=== PATIENT | female | born 1955 | race Caucasian/White ===

== ENCOUNTER 2020-10-27 15:51 | Outpatient (REF) | payer MEDICARE, SELFPAY ==
--- NOTE | 2020-10-27 | MM_ITS ---
EXAMINATION: MM SCREENING DIGITAL BREAST TOMOSYNTHESIS, LEFT CLINICAL INFORMATION: Screening. Asymptomatic. Right mastectomy for breast cancer 2012. Due for yearly. COMPARISON: Mammography: 11/28/2019, 09/05/2018, 12/25/2016 TECHNIQUE: Digital breast tomosynthesis is performed in both the craniocaudal and mediolateral oblique views along with computer-aided detection (CAD). Synthesized 2D images are generated from the tomosynthesis. Additional left MLO view is provided. FINDINGS: There are scattered areas of fibroglandular density (ACR BI-RADS breast composition Category b). Breast tissue composition borders on predominantly fatty. Background normal and fibroglandular densities are stable. There is no developing density or interval mass or architectural abnormality. No abnormal calcifications. No significant changes. MM/MM tomosynthesis screening LT IMPRESSION: No mammographic evidence of malignancy. ASSESSMENT: BI-RADS 1: Negative RECOMMENDATION: Routine annual mammography screening. This patient's information was entered into a reminder system with a target due date for their next mammogram.
== END 2020-10-27 15:52 | disposition home or self-care (01) ==
LOC: HO.MAMMO 15:51
PROVIDERS: PCP Internal Medicine; Visit Provider Internal Medicine Medical Oncology
DX: Z12.31 Encounter for screening mammogram for malignant neoplasm of breast (principal)
CPT/HCPCS: 77067

== ENCOUNTER 2020-11-02 09:04 | Outpatient (REF) | payer MEDICARE, SELFPAY ==
[2020-11-02 09:50] LABS: MANUAL DIFF FLAG NO
[2020-11-02 09:54] LABS: Basophils Percent Auto 0.4 % (0-2); Eosinophils Absolute Auto 0.2 X10*3/uL (0.0-0.4); Eosinophils Percent Auto 3.2 % (0-4); Hematocrit 44.4 % (37-47); Hemoglobin 14.6 g/dl (12.0-16.0); Imm Gran Abs Auto 0.01 X10*3/uL (0.00-0.03); Imm Gran Pct Auto 0.2 % (0.0-0.4); Lymphocytes Absolute Auto 1.7 X10*3/uL (1.2-4.9); Lymphocytes Percent Auto 33.3 % (20-40); Mean Corpuscular HGB Conc 32.9 g/dl (31.0-35.0); Mean Corpuscular Hemoglobin 30.8 pg (27.0-33.0); Mean Corpuscular Volume 93.7 fL (80-98); Mean Platelet Volume 8.7 fL (9.4-12.3); Monocytes Absolute Auto 0.4 X10*3/uL (0.1-1.2); Neutrophils Absolute Auto 2.8 X10*3/uL (2.0-8.3); Neutrophils Percent Auto 55.9 % (45-73); Platelet Count 140 X10*3/uL (160-400); Red Blood Count 4.74 X10*6/uL (4.20-5.50); Red Cell Distribution Width 12.3 % (11.0-16.0)
[2020-11-02 10:27] LABS: Alanine Aminotransferase 22 U/L (0-31); Albumin Level 4.1 g/dL (3.5-5.0); Alkaline Phosphatase 149 U/L (39-117); Anion Gap 12 (12-20); Aspartate Amino Transferase 17 U/L (5-31); Bilirubin Total 0.5 mg/dL (0.0-1.0); Blood Urea Nitrogen 13 mg/dL (9-16); Calcium 8.8 mg/dL (8.4-10.2); Carbon Dioxide 29 mmol/L (22-29); Chloride 103 mmol/L (96-108); Cholesterol 232 mg/dL; Estimated Glomerular Filt Rate > 60; Glucose Fasting 93 mg/dL (60-99); HDL Cholesterol 52 mg/dL; LDL Cholesterol Calculated 159 mg/dl; Potassium 4.2 mmol/l (3.3-5.1); Sodium 140 mmol/L (135-145); Total Protein 6.9 g/dL (6.5-8.0); Triglycerides 106 mg/dL
[2020-11-02 10:47] LABS: Thyroid Stimulating Hormone 8.88 uIU/mL (0.32-4.0)
[2020-11-03 13:12] LABS: CA 27.29 33 U/mL (<38)
== END 2020-11-02 09:05 | disposition home or self-care (01) ==
LOC: HO.LAB 09:04
PROVIDERS: PCP Internal Medicine; Visit Provider Internal Medicine Medical Oncology
DX: C50.411 Malignant neoplasm of upper-outer quadrant of right female breast (principal); E66.9 Obesity, unspecified
CPT/HCPCS: 36415; 80053; 80061; 84443; 85025; 86300

== ENCOUNTER 2022-01-09 15:57 | Outpatient (REF) | payer MEDICARE, SELFPAY ==
--- NOTE | ~2022-01-09 | MM_ITS ---
EXAMINATION: MM SCREENING DIGITAL BREAST TOMOSYNTHESIS, LEFT CLINICAL INFORMATION: Right mastectomy for breast cancer, 2013. Asymptomatic. Due for yearly. COMPARISON: Mammography: 10/27/2020, 11/28/2019, 09/05/2018 TECHNIQUE: Digital breast tomosynthesis is performed in both the craniocaudal and mediolateral oblique views along with computer-aided detection (CAD). Synthesized 2D images are generated from the tomosynthesis. Additional left MLO view is provided. FINDINGS: There are scattered areas of fibroglandular density (ACR BI-RADS breast composition Category b). There are no significant masses, abnormal calcifications, or other abnormalities. Breast tissue composition borders on predominantly fatty. Parenchymal pattern is similar to prior studies and there is no developing density or architectural abnormality. The axilla and skin contours are unremarkable. MM/MM tomosynthesis screening LT IMPRESSION: No mammographic evidence of malignancy. ASSESSMENT: BI-RADS 1: Negative RECOMMENDATION: Routine annual mammography screening. This patient's information was entered into a reminder system with a target due date for their next mammogram.
== END 2022-01-09 15:58 | disposition home or self-care (01) ==
LOC: HO.MAMMO 15:57
PROVIDERS: Visit Provider Internal Medicine
DX: Z12.31 Encounter for screening mammogram for malignant neoplasm of breast (principal)
CPT/HCPCS: 77063; 77067

== ENCOUNTER 2022-02-09 11:07 | Outpatient (REF) | payer MEDICARE, SELFPAY ==
[2022-02-09 13:45] LABS: MANUAL DIFF FLAG NO
[2022-02-09 13:55] LABS: Basophils Percent Auto 0.2 % (0-2); Eosinophils Absolute Auto 0.1 X10*3/uL (0.0-0.4); Eosinophils Percent Auto 2.9 % (0-4); Hematocrit 48.5 % (37.0-47.0); Hemoglobin 15.5 g/dl (12.0-16.0); Imm Gran Abs Auto 0.02 X10*3/uL (0.00-0.03); Imm Gran Pct Auto 0.4 % (0.0-0.4); Lymphocytes Absolute Auto 1.4 X10*3/uL (1.2-4.9); Lymphocytes Percent Auto 28.4 % (20-40); Mean Corpuscular Hemoglobin 31.1 pg (27.0-33.0); Mean Corpuscular Volume 97.4 fL (80.0-98.0); Mean Platelet Volume 8.9 fL (9.4-12.3); Monocytes Absolute Auto 0.3 X10*3/uL (0.1-1.2); Monocytes Percent Auto 7.1 % (2-11); Neutrophils Absolute Auto 2.9 x10*3/uL (2.0-8.3); Platelet Count 125 X10*3/uL (160-400); Red Blood Count 4.98 X10*6/uL (4.20-5.50); Red Cell Distribution Width 12.9 % (11.0-16.0); White Blood Count 4.8 X10*3/uL (4.8-10.8)
== END 2022-02-09 11:08 | disposition home or self-care (01) ==
LOC: HO.HMGCLDS 11:07
PROVIDERS: PCP Internal Medicine; Visit Provider Internal Medicine Medical Oncology
DX: C50.411 Malignant neoplasm of upper-outer quadrant of right female breast (principal); E66.9 Obesity, unspecified; D69.6 Thrombocytopenia, unspecified; F41.9 Anxiety disorder, unspecified; J45.30 Mild persistent asthma, uncomplicated; E55.9 Vitamin D deficiency, unspecified; E78.00 Pure hypercholesterolemia, unspecified; L30.9 Dermatitis, unspecified
CPT/HCPCS: 36415; 85025

== ENCOUNTER 2022-02-10 09:37 | Outpatient (REF) | payer MEDICARE, SELFPAY ==
[2022-02-10 11:46] LABS: Alanine Aminotransferase 31 U/L (0-31); Albumin Level 4.3 g/dL (3.5-5.0); Alkaline Phosphatase 123 U/L (39-117); Anion Gap 13 (12-20); Aspartate Amino Transferase 24 U/L (5-31); Bilirubin Total 0.5 mg/dL (0.0-1.0); Blood Urea Nitrogen 10 mg/dL (9-16); Calcium 9.5 mg/dL (8.4-10.2); Carbon Dioxide 27 mmol/L (22-29); Chloride 104 mmol/L (96-108); Cholesterol 249 mg/dL; Estimated Glomerular Filt Rate > 60; Glucose Fasting 90 mg/dL (60-99); HDL Cholesterol 64 mg/dL; LDL Cholesterol Calculated 162 mg/dl; Potassium 4.4 mmol/L (3.3-5.1); Sodium 140 mmol/L (135-145); Total Protein 7.5 g/dL (6.5-8.0); Triglycerides 117 mg/dL
[2022-02-10 12:09] LABS: Vitamin D 25-OH Total 16.8 ng/mL (>30)
== END 2022-02-10 09:38 | disposition home or self-care (01) ==
LOC: HO.HMGCLDS 09:37
PROVIDERS: PCP Internal Medicine; Visit Provider Internal Medicine Medical Oncology
DX: Z00.00 Encounter for general adult medical examination without abnormal findings (principal); C50.411 Malignant neoplasm of upper-outer quadrant of right female breast; E66.9 Obesity, unspecified; D69.6 Thrombocytopenia, unspecified; F41.9 Anxiety disorder, unspecified; J45.30 Mild persistent asthma, uncomplicated; E55.9 Vitamin D deficiency, unspecified; E78.00 Pure hypercholesterolemia, unspecified; L30.9 Dermatitis, unspecified
CPT/HCPCS: 36415; 80053; 80061; 82306; 84443

== ENCOUNTER 2022-07-26 11:07 | Outpatient (REF) | payer MEDICARE, SELFPAY ==
[2022-07-26 13:59] LABS: Basophils Percent Auto 0.4 % (0-2); Eosinophils Absolute Auto 0.1 X10*3/uL (0.0-0.4); Eosinophils Percent Auto 2.2 % (0-4); Hematocrit 45.4 % (37.0-47.0); Hemoglobin 14.7 g/dl (12.0-16.0); Imm Gran Abs Auto 0.01 X10*3/uL (0.00-0.03); Imm Gran Pct Auto 0.2 % (0.0-0.4); Lymphocytes Absolute Auto 1.3 X10*3/uL (1.2-4.9); Lymphocytes Percent Auto 23.4 % (20-40); MANUAL DIFF FLAG SCAN; Mean Corpuscular HGB Conc 32.4 g/dl (31.0-35.0); Mean Corpuscular Hemoglobin 30.2 pg (27.0-33.0); Mean Corpuscular Volume 93.2 fL (80.0-98.0); Mean Platelet Volume 9.6 fL (9.4-12.3); Monocytes Absolute Auto 0.4 X10*3/uL (0.1-1.2); Monocytes Percent Auto 7.6 % (2-11); Neutrophils Absolute Auto 3.6 x10*3/uL (2.0-8.3); Neutrophils Percent Auto 66.2 % (45-73); PLT CLUMP 1; Red Blood Count 4.87 X10*6/uL (4.20-5.50); Red Cell Distribution Width 13.1 % (11.0-16.0); SCAN SMEAR FLAG 1
[2022-07-26 14:00] LABS: Platelet Count 150 X10*3/uL (160-400); White Blood Count 5.4 X10*3/uL (4.8-10.8)
[2022-07-26 14:22] LABS: SLIDE REVIEW VERIFIED
[2022-07-26 14:28] LABS: Vitamin D 25-OH Total 17.8 ng/mL (>30)
[2022-07-26 14:30] LABS: Alanine Aminotransferase 22 U/L (0-31); Albumin Level 4.1 g/dL (3.5-5.0); Alkaline Phosphatase 168 U/L (39-117); Anion Gap 17 (12-20); Aspartate Amino Transferase 22 U/L (5-31); Blood Urea Nitrogen 10 mg/dL (9-16); Calcium 9.4 mg/dL (8.4-10.2); Carbon Dioxide 25 mmol/L (22-29); Chloride 104 mmol/L (96-108); Cholesterol 170 mg/dL; Estimated Glomerular Filt Rate > 60; Glucose Fasting 78 mg/dL (60-99); HDL Cholesterol 60 mg/dL; LDL Cholesterol Calculated 91 mg/dl; Potassium 4.7 mmol/L (3.3-5.1); Sodium 141 mmol/L (135-145); Total Protein 7.1 g/dL (6.5-8.0); Triglycerides 97 mg/dL
[2022-07-26 14:38] LABS: Bilirubin Total 0.4 mg/dL (0.0-1.0)
== END 2022-07-26 11:08 | disposition home or self-care (01) ==
LOC: HO.HMGCLDS 11:07
PROVIDERS: PCP Internal Medicine; Visit Provider Internal Medicine
DX: Z00.00 Encounter for general adult medical examination without abnormal findings (principal); E78.00 Pure hypercholesterolemia, unspecified; E55.9 Vitamin D deficiency, unspecified; L30.9 Dermatitis, unspecified; J45.30 Mild persistent asthma, uncomplicated; F41.9 Anxiety disorder, unspecified
CPT/HCPCS: 36415; 80053; 80061; 82306; 85025

== ENCOUNTER 2023-03-14 14:51 | Outpatient (REF) | payer MEDICARE, SELFPAY ==
[2023-03-14 17:07] LABS: MANUAL DIFF FLAG NO
[2023-03-14 17:17] LABS: Basophils Percent Auto 0.2 % (0-2); Eosinophils Absolute Auto 0.1 X10*3/uL (0.0-0.4); Eosinophils Percent Auto 1.7 % (0-4); Hematocrit 47.2 % (37.0-47.0); Hemoglobin 15.3 g/dl (12.0-16.0); Imm Gran Abs Auto 0.02 X10*3/uL (0.00-0.03); Imm Gran Pct Auto 0.3 % (0.0-0.4); Lymphocytes Absolute Auto 1.5 X10*3/uL (1.2-4.9); Lymphocytes Percent Auto 23.5 % (20-40); Mean Corpuscular HGB Conc 32.4 g/dl (31.0-35.0); Mean Corpuscular Hemoglobin 30.5 pg (27.0-33.0); Mean Corpuscular Volume 94.2 fL (80.0-98.0); Mean Platelet Volume 8.8 fL (9.4-12.3); Monocytes Absolute Auto 0.5 X10*3/uL (0.1-1.2); Monocytes Percent Auto 7.7 % (2-11); Neutrophils Absolute Auto 4.2 x10*3/uL (2.0-8.3); Neutrophils Percent Auto 66.6 % (45-73); Platelet Count 179 X10*3/uL (160-400); Red Blood Count 5.01 X10*6/uL (4.20-5.50); Red Cell Distribution Width 13.8 % (11.0-16.0); White Blood Count 6.3 X10*3/uL (4.8-10.8)
[2023-03-14 18:14] LABS: Alanine Aminotransferase 36 U/L (0-31); Albumin Level 4.4 g/dL (3.5-5.0); Alkaline Phosphatase 129 U/L (39-117); Anion Gap 17 (12-20); Aspartate Amino Transferase 33 U/L (5-31); Bilirubin Total 0.5 mg/dL (0.0-1.0); Blood Urea Nitrogen 10 mg/dL (9-16); Calcium 9.8 mg/dL (8.4-10.2); Carbon Dioxide 24 mmol/L (22-29); Chloride 103 mmol/L (96-108); Estimated Glomerular Filt Rate > 60; Glucose Random 72 mg/dL (60-115); Potassium 4.9 mmol/L (3.3-5.1); Sodium 139 mmol/L (135-145); Total Protein 7.5 g/dL (6.5-8.0)
== END 2023-03-14 14:52 | disposition home or self-care (01) ==
LOC: HO.HMGCLDS 14:51
PROVIDERS: PCP Internal Medicine; Visit Provider Internal Medicine
DX: R19.7 Diarrhea, unspecified (principal)
CPT/HCPCS: 36415; 80053; 85025

== ENCOUNTER 2023-05-07 14:31 | Outpatient (AMB) | payer MEDICARE, SELFPAY ==
--- NOTE | 2023-05-07 14:32 | MHC.OFFVIS ---
Intake Vital Signs 05/07/23 14:34 Height 5 ft 2 in Weight 209 lb BMI 38.2 BP 130/76 Intake Visit Reasons: Menopausal Symptoms Price Accuracy Supervisor Required: No Information Interpreted: non-clinical & clinical Semiautomatic Taper Operator: Semiautomatic Taper Operator Present (Desirae) Allergies Sulfa (Sulfonamide Antibiotics) [SULFA (SULFONAMIDE ANTIBIOTICS)] Allergy (Intermediate, Verified 05/07/23 14:37) HIVES, severe hives Keflex Allergy (Unknown, Uncoded 05/07/23 14:37) Rash seasonal Allergy (Unknown, Uncoded 05/07/23 14:37) Watery Eye SEASONAL ALLERGIES Allergy (Unknown, Uncoded 05/07/23 14:37) CONGESTION/ASTHMA Sulfa Allergy (Unknown, Uncoded 05/07/23 14:37) Rash Is last menstrual period known: No Post menopausal: Yes HPI HPI Comments History of Present Illness Details Presenting complaining of a bulge per vagina no associated urinary or GI symptoms, no vaginal bleeding PFSH Medical History Breast cancer Surgical History H/O mastectomy History of bowel resection Family History Sister Breast cancer Maternal Aunt Breast cancer Female Reproductive History Menstrual Age of Menarche: 8 control method: none Total pregnancies: 4 Full term: 2 Number of Living Children: 2 Ab induced: 1 Ab spontaneous: 1 Date of last pap smear: 12/07/09 (negative) Date of Mammogram: 01/09/22 Review of Systems Const All systems reviewed & are unremarkable except as noted in HPI and below Physical Exam Vital Signs: Last Vital Signs BP 130/76 05/07/23 14:34 BMI result Body Mass Index 38.2 General: Yes no CVA tenderness External Female Exam: normal external appearance and normal appearance of the urethra Speculum Exam - Vagina: normal appearance of the vagina, normal palpation, no lesions, no masses and other (Mild cystocele center and bilateral paravaginal defects) Speculum Exam - Cervix: normal appearance of the cervix, normal palpation, no lesions, no masses and nontender Bimanual exam- vagina & uterus: normal bimanual exam, normal palpation, uterine size normal, normal palpation, uterine shape normal, No Cervical tenderness present, non-tender and other (Mild uterine prolapse) Bimanual Exam- Adnexa, other: normal adnexae Back/Spine/Pelvis Back: no CVA tenderness Assessment & Plan Assessment & Plan (1) Cystocele with uterine prolapse: Comment: Mild central and bilateral paravaginal defects Mild uterine prolapse Code(s): N81.4 - Uterovaginal prolapse, unspecified Plan: Discussed with the patient the finding on pelvic exam showing mild cystocele and uterine prolapse, options of treatment were discussed with the patient including : expected management, pessary or surgical management. All pros and cons, risks and benefits of each approach were discussed with the patient, the patient decided to proceed with expected management. Instructions given to patient to call back if symptoms get worse. All questions answered, the patient verbalized Coding Level of Care Code New Pt Level 3 (84098) Diagnoses Cystocele with uterine prolapse N81.4
[2023-05-07 14:34] VITALS: BP 130/76; BMI 38.2
== END 2023-05-07 15:04 | disposition home or self-care (01) ==
LOC: HO.HWS 14:31
PROVIDERS: PCP Internal Medicine; Visit Provider Obstetrics & Gynecology
DX: N81.4 Uterovaginal prolapse, unspecified (principal)
CPT/HCPCS: 99203

== ENCOUNTER → 2023-05-07 14:31 | Outpatient (BNVA) | payer MEDICARE, SELFPAY | PROVIDERS: PCP Internal Medicine; Visit Provider Obstetrics & Gynecology | DX: N81.4 Uterovaginal prolapse, unspecified (principal) | CPT/HCPCS: 99202 ==

== ENCOUNTER 2023-05-18 10:31 | Outpatient (REF) | payer MEDICARE, SELFPAY ==
[2023-05-18 13:24] LABS: MANUAL DIFF FLAG NO
[2023-05-18 13:33] LABS: Basophils Percent Auto 0.4 % (0-2); Eosinophils Absolute Auto 0.1 X10*3/uL (0.0-0.4); Eosinophils Percent Auto 2.8 % (0-4); Hematocrit 46.5 % (37.0-47.0); Hemoglobin 14.8 g/dl (12.0-16.0); Imm Gran Abs Auto 0.02 X10*3/uL (0.00-0.03); Imm Gran Pct Auto 0.4 % (0.0-0.4); Lymphocytes Absolute Auto 1.4 X10*3/uL (1.2-4.9); Lymphocytes Percent Auto 27.8 % (20-40); Mean Corpuscular HGB Conc 31.8 g/dl (31.0-35.0); Mean Corpuscular Hemoglobin 30.7 pg (27.0-33.0); Mean Corpuscular Volume 96.5 fL (80.0-98.0); Monocytes Absolute Auto 0.4 X10*3/uL (0.1-1.2); Monocytes Percent Auto 7.2 % (2-11); Neutrophils Absolute Auto 3.1 x10*3/uL (2.0-8.3); Neutrophils Percent Auto 61.4 % (45-73); Platelet Count 148 X10*3/uL (160-400); Red Blood Count 4.82 X10*6/uL (4.20-5.50); Red Cell Distribution Width 13.2 % (11.0-16.0)
[2023-05-18 13:54] LABS: Alanine Aminotransferase 19 U/L (0-31); Albumin Level 4.2 g/dL (3.5-5.0); Alkaline Phosphatase 103 U/L (39-117); Aspartate Amino Transferase 19 U/L (5-31); Bilirubin Total 0.4 mg/dL (0.0-1.0); Blood Urea Nitrogen 13 mg/dL (9-16); Calcium 9.5 mg/dL (8.4-10.2); Carbon Dioxide 26 mmol/L (22-29); Chloride 106 mmol/L (96-108); Cholesterol 183 mg/dL; Estimated Glomerular Filt Rate > 60; Glucose Fasting 86 mg/dL (60-99); HDL Cholesterol 62 mg/dL; LDL Cholesterol Calculated 98 mg/dl; Lipase 16 U/L (8-78); Potassium 4.4 mmol/L (3.3-5.1); Sodium 142 mmol/L (135-145); Total Protein 7.4 g/dL (6.5-8.0); Triglycerides 118 mg/dL
[2023-05-18 14:08] LABS: Amylase 45 U/L (28-100); Anion Gap 14 (12-20); Thyroid Stimulating Hormone 2.41 uIU/mL (0.32-4.0); Vitamin D 25-OH Total 42.6 ng/mL (>30)
== END 2023-05-18 10:32 | disposition home or self-care (01) ==
LOC: HO.HMGCLDS 10:31
PROVIDERS: PCP Internal Medicine; Visit Provider Internal Medicine
DX: F41.9 Anxiety disorder, unspecified (principal); F32.9 Major depressive disorder, single episode, unspecified; E78.00 Pure hypercholesterolemia, unspecified; E55.9 Vitamin D deficiency, unspecified; J45.30 Mild persistent asthma, uncomplicated; E66.09 Other obesity due to excess calories; L30.9 Dermatitis, unspecified; E03.9 Hypothyroidism, unspecified
CPT/HCPCS: 36415; 80053; 80061; 82150; 82306; 83690; 84443; 85025

== ENCOUNTER 2023-10-18 16:10 | Outpatient (REF) | payer MEDICARE, SELFPAY | END 2023-10-18 16:11 | disposition home or self-care (01) | LOC: HO.MAMMO 16:10 | PROVIDERS: PCP Internal Medicine; Visit Provider Internal Medicine | DX: Z13.89 Encounter for screening for other disorder (principal) ==

== ENCOUNTER → 2023-11-05 15:00 | Outpatient (BNV) | payer MEDICARE, SELFPAY | PROVIDERS: PCP Internal Medicine; Visit Provider Radiology Diagnostic Radiology | DX: R59.0 Localized enlarged lymph nodes (principal) | CPT/HCPCS: 76642; 77061; 77065; G0279 ==

== ENCOUNTER 2023-11-05 15:06 | Outpatient (REF) | payer MEDICARE, SELFPAY ==
--- NOTE | ~2023-11-05 | MM_ITS ---
EXAMINATION: MM DIAGNOSTIC DIGITAL BREAST TOMOSYNTHESIS, LEFT US BREAST LIMITED, LEFT MAMMOGRAPHY: CLINICAL INFORMATION: 68-year-old female, history of right mastectomy, complaining of palpable abnormality left axillary region. COMPARISON: Mammography: 01/09/2022, 10/27/2020, 11/28/2019, and dating back to 2017. TECHNIQUE: Digital left breast tomosynthesis is performed in both the craniocaudal and mediolateral oblique views along with computer-aided detection (CAD). Synthesized 2D images are generated from the tomosynthesis. In addition, full-field left 3-D exaggerated cc view was obtained, as well as a left full-field 3-D 90 degree mediolateral view. FINDINGS: The breasts are almost entirely fatty (ACR BI-RADS breast composition Category a). There are no suspicious masses, suspicious grouped calcifications, or areas of architectural distortion in either breast. The parenchymal pattern is stable from prior exams. Aside from small normal-appearing lymph nodes, no abnormality is evident within the left axillary region on mammography. There are no skin abnormalities. ULTRASOUND: CLINICAL INFORMATION: As above. COMPARISON: None relevant. TECHNIQUE: Targeted sonographic evaluation left axilla was performed using a high frequency linear transducer. Selected archived documentation. FINDINGS: LEFT AXILLA: There are several small normal appearing lymph nodes with normal thickness cortex and normal fatty cydney within the left axilla, of which one likely represents the palpable focus. There are no masses, cystic abnormalities, abnormal lymph nodes, abnormal regions of shadowing, or edema within the soft tissue planes. MM/MM tomosynthesis diagnostic LT IMPRESSION: There are no findings suspicious for malignancy in the left breast or axilla. The palpable abnormality is most likely one of several normal-appearing left axillary lymph nodes. These are benign. No additional abnormalities in the left axilla. Recommend the patient return to routine annual screening mammography. OVERALL ASSESSMENT: Mammography: BI-RADS 2 - Benign Findings Ultrasound: BI-RADS 2 - Benign Findings RECOMMENDATION: 1 year F/U Results were provided to the patient at time of visit by the technologist. This patient's information was entered into a reminder system with a target due date for their next mammogram.
== END 2023-11-05 15:07 | disposition home or self-care (01) ==
LOC: HO.MAMMO 15:06
PROVIDERS: PCP Internal Medicine; Visit Provider Internal Medicine
DX: N63.32 Unspecified lump in axillary tail of the left breast (principal)
CPT/HCPCS: 76642; 77061; 77065

== ENCOUNTER 2024-07-25 07:43 | Outpatient (REF) | payer MEDICARE, SELFPAY ==
[2024-07-25 11:46] LABS: MANUAL DIFF FLAG NO
[2024-07-25 11:50] LABS: Basophils Percent Auto 0.4 % (0-2); Eosinophils Absolute Auto 0.3 X10*3/uL (0.0-0.4); Eosinophils Percent Auto 4.8 % (0-4); Hematocrit 44.7 % (37.0-47.0); Hemoglobin 14.5 g/dl (12.0-16.0); Imm Gran Abs Auto 0.01 X10*3/uL (0.00-0.03); Imm Gran Pct Auto 0.2 % (0.0-0.4); Lymphocytes Absolute Auto 1.5 X10*3/uL (1.2-4.9); Lymphocytes Percent Auto 29.3 % (20-40); Mean Corpuscular HGB Conc 32.4 g/dl (31.0-35.0); Mean Corpuscular Hemoglobin 31.3 pg (27.0-33.0); Mean Corpuscular Volume 96.5 fL (80.0-98.0); Monocytes Absolute Auto 0.4 X10*3/uL (0.1-1.2); Monocytes Percent Auto 7.5 % (2-11); Neutrophils Percent Auto 57.8 % (45-73); Platelet Count 153 X10*3/uL (160-400); Red Blood Count 4.63 X10*6/uL (4.20-5.50); White Blood Count 5.2 X10*3/uL (4.8-10.8)
[2024-07-25 12:12] LABS: Alanine Aminotransferase 21 U/L (0-31); Alkaline Phosphatase 128 U/L (39-117); Anion Gap 12 (12-20); Aspartate Amino Transferase 19 U/L (5-31); Bilirubin Total 0.3 mg/dL (0.0-1.0); Blood Urea Nitrogen 12 mg/dL (9-16); Carbon Dioxide 27 mmol/L (22-29); Chloride 106 mmol/L (96-108); Cholesterol 172 mg/dL (<200); Estimated Glomerular Filt Rate > 60; Glucose Fasting 80 mg/dL (60-99); HDL Cholesterol 59 mg/dL (>40); LDL Cholesterol Calculated 92 mg/dL (<100); Potassium 4.1 mmol/L (3.3-5.1); Sodium 141 mmol/L (135-145); Total Protein 6.9 g/dL (6.5-8.0); Triglycerides 106 mg/dL (<150)
[2024-07-25 12:27] LABS: Vitamin D 25-OH Total 24.7 ng/mL (>30)
[2024-07-28 14:38] LABS: Thyroid Stimulating Hormone 6.31 uIU/mL (0.32-4.0)
== END 2024-07-25 07:44 | disposition home or self-care (01) ==
LOC: HO.HMGCLDS 07:43
PROVIDERS: PCP Internal Medicine; Visit Provider Internal Medicine
DX: E03.9 Hypothyroidism, unspecified (principal); E78.00 Pure hypercholesterolemia, unspecified; J45.30 Mild persistent asthma, uncomplicated; F32.9 Major depressive disorder, single episode, unspecified; F41.9 Anxiety disorder, unspecified; C50.911 Malignant neoplasm of unspecified site of right female breast; L30.9 Dermatitis, unspecified
CPT/HCPCS: 36415; 80053; 80061; 82306; 84443; 85025

== ENCOUNTER 2024-11-07 11:50 | Outpatient (REF) | payer MEDICARE, SELFPAY ==
[2024-11-07 13:02] LABS: Hematocrit 46.3 % (37.0-47.0); Hemoglobin 15.2 g/dl (12.0-16.0); Mean Corpuscular HGB Conc 32.8 g/dl (31.0-35.0); Mean Corpuscular Hemoglobin 31.1 pg (27.0-33.0); Mean Corpuscular Volume 94.7 fL (80.0-98.0); Mean Platelet Volume 9.1 fL (9.4-12.3); Platelet Count 148 X10*3/uL (160-400); Red Blood Count 4.89 X10*6/uL (4.20-5.50); White Blood Count 4.6 X10*3/uL (4.8-10.8)
[2024-11-07 13:23] LABS: Alanine Aminotransferase 32 U/L (0-31); Albumin Level 4.1 g/dL (3.5-5.0); Alkaline Phosphatase 121 U/L (39-117); Anion Gap 14 (12-20); Aspartate Amino Transferase 42 U/L (5-31); Bilirubin Direct 0.1 mg/dL (0.0-0.5); Bilirubin Total 0.6 mg/dL (0.0-1.0); Blood Urea Nitrogen 12 mg/dL (9-16); Calcium 9.3 mg/dL (8.4-10.2); Carbon Dioxide 21 mmol/L (22-29); Chloride 110 mmol/L (96-108); Cholesterol 174 mg/dL (<200); Estimated Glomerular Filt Rate > 60; Glucose Random 80 mg/dL (60-115); HDL Cholesterol 58 mg/dL (>40); LDL Cholesterol Calculated 93 mg/dL (<100); Potassium 5.3 mmol/L (3.3-5.1); Sodium 140 mmol/L (135-145); Total Protein 8.2 g/dL (6.5-8.0); Triglycerides 115 mg/dL (<150)
[2024-11-07 13:46] LABS: Thyroid Stimulating Hormone 1.39 uIU/mL (0.32-4.0)
== END 2024-11-07 11:51 | disposition home or self-care (01) ==
LOC: HO.HMGCLDS 11:50
PROVIDERS: PCP Internal Medicine; Visit Provider Internal Medicine
DX: C50.919 Malignant neoplasm of unspecified site of unspecified female breast (principal)
CPT/HCPCS: 36415; 80048; 80061; 80076; 84443; 85027

== ENCOUNTER → 2024-11-09 15:45 | Outpatient (BNV) | payer MEDICARE, SELFPAY | PROVIDERS: PCP Internal Medicine; Visit Provider Internal Medicine | DX: Z12.31 Encounter for screening mammogram for malignant neoplasm of breast (principal) | CPT/HCPCS: 77063; 77067 ==

== ENCOUNTER 2024-11-09 16:01 | Outpatient (REF) | payer MEDICARE, SELFPAY | END 2024-11-09 16:02 | disposition home or self-care (01) | LOC: HO.MAMMO 16:01 | PROVIDERS: PCP Internal Medicine; Visit Provider Internal Medicine | DX: Z12.31 Encounter for screening mammogram for malignant neoplasm of breast (principal) | CPT/HCPCS: 77063; 77067 ==

== ENCOUNTER 2024-12-11 12:42 | Outpatient (AMB) | payer MEDICARE, SELFPAY ==
--- NOTE | 2024-12-11 12:43 | MHC.PC.OV ---
Intake Visit Reasons: Fever, productive, chest congestion ( -Covid) Intake Note: Patient is here to follow up on Fever, productive, Chest congestion. Slag Motor Operator Required: No Dock Superintendent: Not Required per policy Accompanied by: Self / Same As Patient Allergies Sulfa (Sulfonamide Antibiotics) [SULFA (SULFONAMIDE ANTIBIOTICS)] Allergy (Intermediate, Verified 12/11/24 12:57) HIVES, severe hives Keflex Allergy (Unknown, Uncoded 12/11/24 12:57) Rash seasonal Allergy (Unknown, Uncoded 12/11/24 12:57) Watery Eye SEASONAL ALLERGIES Allergy (Unknown, Uncoded 12/11/24 12:57) CONGESTION/ASTHMA Sulfa Allergy (Unknown, Uncoded 12/11/24 12:57) Rash Medication List - Last Reconciled 12/11/24 by Cinda Calderon PA-C albuterol sulfate 90 mcg/actuation 2 puffs inhalation Q4H PRN alprazolam 1 mg PO BID PRN amoxicillin-pot clavulanate 875-125 mg 1 tab PO BID 10 days aspirin (Adult Aspirin Regimen) 81 mg PO DAILY atorvastatin 10 mg PO DAILY azithromycin For 250 mg dose pack: take 500 mg today (day 1), then 250 mg for 4 days (days 2-5) PO betamethasone dipropionate 0.05% 1 appl topical BID PRN cholecalciferol (vitamin D3) 50 mcg PO DAILY codeine-guaifenesin 10-100 mg/5 mL 5 mL PO Q6H PRN ergocalciferol (vitamin D2) (Vitamin D2) 1,250 mcg PO 2XW fluticasone propion-salmeterol 250-50 mcg/dose 1 ea inhalation BID levothyroxine 75 mcg PO QAM montelukast 10 mg PO DAILY prednisone 40 mg (2 x 20 mg) PO DAILY 5 days sertraline 50 mg PO DAILY Tobacco use date assessed: 12/11/24 Fall risk assessment: No Falls in past year Last assessed Fall Risk: 12/11/24 Dental Screening Dental Screen Date: 12/11/24 Did you have a dental visit in the last 12 months?: No Did you have a dental problem in the last 6 months where you did not have access to dental care?: No Was dental information given to patient?: Patient has dentist [facility] Medical History (Updated 12/11/24 @ 13:00 by Cinda Calderon PA-C) Bronchitis Hyperkalemia Encounter for colorectal cancer screening using Cologuard test (~02/2024) Obesity Emphysema lung Breast cancer screening by mammogram (~11/09/24) Acquired hypothyroidism Mild hypercholesterolemia Vitamin D deficiency Depression Anxiety Renal lithiasis Diverticulitis Asthma Breast cancer Surgical History History of colonoscopy (~04/17/13) H/O mastectomy History of bowel resection Family History Sister Breast cancer Maternal Aunt Breast cancer Social History Housing: House Alcohol intake: never Patient Tobacco Use Status: Former Tobacco user e-Cigarette/Vaping Use: Never Used Second Hand Smoke Exposure: Yes service: No Current occupational status: employed and retired Cognitive needs: No Hearing needs: No Vision needs: Yes (Reading glasses) Female Reproductive History Menstrual Age of Menarche: 8 Questionnaire PHQ-9 Over the last 2 weeks, how often have you been bothered by any of the following problems? 1. Little interest or pleasure in doing things: not at all 2. Feeling down, depressed, or hopeless: not at all 3. Trouble falling or staying asleep, or sleeping too much: not at all 4. Feeling tired or having little energy: not at all 5. Poor appetite or overeating: not at all 6. Feeling bad about yourself - or that you are a failure or have let yourself or your family down: not at all 7. Trouble concentrating on things, such as reading the newspaper or watching television: not at all 8. Moving or speaking so slowly that other people could have noticed. Or the opposite - being so fidgety or restless that you have been moving around a lot more than usual: not at all 9. Thoughts that you would be better off or of hurting yourself in some way: not at all Total score: 0 Depression Screening Interpretation: Negative Depression Screening Done: Yes 33159 - PHQ-9 Billing: Yes Source: Developed by Drs. Palomo Bishop, Adriana Holman, Kennedy Weston and colleagues, with an educational yady from [employer]. RONY-7 AMB Questionnaire RONY-7 Date RONY - 7 assessed: 12/11/24 Feeling nervous, anxious, or on edge: 3 = Nearly every day (on medication) Not being able to stop or control worryin = Not at all Worrying too much about different things: 0 = Not at all Trouble relaxin = More than half the days Being so restless that it is hard to sit still: 0 = Not at all Becoming easily annoyed or irritable: 0 = Not at all Feeling afraid as if something awful might happen: 0 = Not at all Total RONY-7 score (0-4 normal; 5-9 mild; 10-14 moderate; 15-21 severe): 5 Source: Developed by Drs. Palomo Bishop, Adriana Holman, Kennedy Weston and colleagues, with an educational yady from [employer]. RONY-7 Assessment Billing RONY-7 Assessment Tool: RONY-7 Assessment 72991 Physical exam (Primary Care) Tobacco/Smoking Status: Tobacco use Status Tobacco use date assessed 12/11/24 12/11/24 12:47 Patient Tobacco Use Status Former Tobacco user 12/11/24 12:47 e-Cigarette/Vaping Use Never Used 12/11/24 12:47 PHQ-9: PHQ-9 Score PHQ-9: Total score 0 12/11/24 12:47 Depression Screening Interpretation: Negative Telehealth Telehealth Telehealth Platform: Telephone Location of provider rendering services: practice address Location of patient: address on file Patient Identification confirmed using: Name, : Yes Telehealth method: voice only Patient verbally consented to treatment: Yes Patient verbally consented to billing insurance company: Yes Patient informed of any privacy concerns related to visit: Yes Minutes spent on Phone/Video with Pt.: 15 Coding Level of Care Code Tele Est Pt Level 3 (34915) Diagnoses Bronchitis J40 Additional Codes PHQ-9 - 96243 - PHQ-9 Billing: Yes ([id number]) RONY-7 Assessment Billing - RONY-7 Assessment Tool: RONY-7 Assessment 97658 ([id number]) Assessment & Plan Assessment & Plan (1) Bronchitis: Code(s): J40 - Bronchitis, not specified as acute or chronic Category: Medical Plan: Patient will be started on Augmentin, Z-Heladio, prednisone, Robitussin with codeine. Instructed to go to the emergency department to call us if she develops any worsening symptoms. Condition is stable will continue to monitor. Plan Plan Patient was informed and verbally consented to the use of an ambient scribe for clinic note documentation during this visit. 1. Acute Bronchitis The confirmed diagnosis of acute bronchitis will be treated with Augmentin and a Z-Heladio. The patient is advised to monitor symptoms, specifically escalating shortness of breath or fever, which may require further diagnostic imaging or emergency care. 2. Cough Cough management will include inhaler use, with an additional prescription for Robitussin with Codeine for symptomatic relief. Consideration of prednisone is recommended given increased inhaler usage to manage potential airway inflammation. Medications: New codeine-guaifenesin 10-100 mg/5 mL 5 mL PO Q6H PRN 120 mL 0RF cough amoxicillin-pot clavulanate 875-125 mg 1 tab PO BID 20 tabs 0RF 10 days prednisone 40 mg (2 x 20 mg) PO DAILY 10 tabs 0RF 5 days azithromycin For 250 mg dose pack: take 500 mg today (day 1), then 250 mg for 4 days (days 2-5) PO 6 tabs 0RF Patient Instructions: Patient Instructions - Begin taking the prescribed Augmentin and a Z-Heladio as directed. - Use Robitussin with Codeine to manage cough symptoms. - Continue using your inhaler as needed for coughing or breathing difficulty. - If symptoms worsen over the weekend, or you experience persistent fever, increasing shortness of breath, or chest pain, seek immediate medical attention. - Monitor for any persistent or worsening symptoms and consult if necessary. - Fill all prescriptions at the [facility] on [address] as discussed. Scribe Plan - Not visible on output: History of Present Illness The patient is a 69-year-old female presenting with respiratory symptoms, particularly addressing concerns about the potential progression into bronchitis. Onset of symptoms includes fever experienced the previous night, with alternating sensations of heat and cold, followed by chills on the day of the visit. The course typically includes rapid progression of the common cold symptoms into bronchitis, as per historical medical experiences. The patient's symptomatology primarily features significant coughing, for which the usage of an inhaler has increased, although notable for lack of chest pain or pronounced shortness of breath. A negative result was confirmed for COVID-19 and influenza tests. Previous treatment courses have included azithromycin or amoxicillin, but a stronger medication, Augmentin, was decided upon for this incidence. The patient retains a supply of an inhaler, negating the need for a refill. Consideration of prednisone was discussed to manage exacerbated respiratory symptoms, and Robitussin with Codeine was selected as a suitable cough suppressant. Review of Systems - Respiratory: Reports increased cough; Denies chest pain or significant shortness of breath. - General: Reports fever and chills; Denies persistent fever following current interventions. Plan Patient was informed and verbally consented to the use of an ambient scribe for clinic note documentation during this visit. 1. Acute Bronchitis The confirmed diagnosis of acute bronchitis will be treated with Augmentin. The patient is advised to monitor symptoms, specifically escalating shortness of breath or fever, which may require further diagnostic imaging or emergency care. 2. Cough Cough management will include inhaler use, with an additional prescription for Robitussin with Codeine for symptomatic relief. Consideration of prednisone is recommended given increased inhaler usage to manage potential airway inflammation. Discussion Notes During our discussion, I outlined the likelihood of acute bronchitis as the diagnosis, with treatment plans including Augmentin given the insufficient response to previous therapies such as a Z-Heladio. The patient agreed to initiate this regimen. I highlighted the risk factors pertaining to untreated escalating symptoms, such as persistent fever and breathing difficulties that require immediate emergency attention. Prednisone was considered due to increased reliance on inhalers, and Robitussin with Codeine was discussed for the specific management of her cough. The patient elected to fill the prescriptions at the [facility] on [address], and I advised on continuing existing inhaler usage while remaining aware of symptom escalation requiring further assessment. Patient Instructions - Begin taking the prescribed Augmentin as directed. - Use Robitussin with Codeine to manage cough symptoms. - Continue using your inhaler as needed for coughing or breathing difficulty. - If symptoms worsen over the weekend, or you experience persistent fever, increasing shortness of breath, or chest pain, seek immediate medical attention. - Monitor for any persistent or worsening symptoms and consult if necessary. - Fill all prescriptions at the [facility] on [address] as discussed.
--- OUTSIDE RECORDS SUMMARY | 2024-12-11 14:16 | XMS_ITS ---
Author Organization Palomo Frazier III, MD Address [address] [place] [address] [place] [address] Care Team Providers Care Merchandise Coordinator Name Role Phone Malik Espinal Primary Care Provider Palomo Elliott [phone] REASON FOR VISIT Follow up Encounters Encounter Location Date Provider Diagnosis Palomo Frazier III, MD [address] [place] [address] [address] [facility] [facility] [place] [place] [address] 12/04/2024 Palomo Frazier Plan Of Treatment Next Appt Details Provider Name:Palomo Frazier, 12/25/2024 04:00:00 PM, [address] [place] [address] [place], [phone], Progress Notes * Quyen ERICKSONhDOB:1954 (69 yo F)Acc No.[id number]:12/04/2024 Progress Notes Patient:?Quyen ERICKSON Provider:?Palomo Frazier MD :1955???Age:69 Y???Sex:Female D ate:12/04/2024 Address:[address] [place], [place] [address]JO[place] [id number] Pcp:Malik Espinal Subjective: * Chief Complaints: * ???1. Follow up. * Medical History:? Objective: * Vitals:? Assessment: Plan: * Treatment: * Images: * The named appointment provid er may or may not be the originator of this progress note, and it is not deemed complete until electronically signed by the appointment provider. Sign off status: Pending * Provider:?Palomo Frazier MD Date:?11/08 Generated for Sumanth henson/Shamika/Seth on:?12/11/2024 02:15 PM EST
--- OUTSIDE RECORDS SUMMARY | 2024-12-11 14:16 | XMS_ITS | Patient Health Record ---
Author Organization Palomo Frazier III, MD Address [address] [place] [address] Care Team Providers Care Deputy Clerk Name Role Phone Kylie, Kartik Primary Care Provider Palomo Elliott Unavailable [phone] Allergies Allergen (clinical drug ingredient) Drug/Non Drug Allergy documented on EMR Reaction Allergy Type Onset Date Status sulfa Unknown Drug Allergy Active Reason For Referral No Information Medications Medication SIG (Take, Route, Frequency, Duration) Notes Start Date End Date Status Xanax 0.25 MG 1 tablet Orally as needed Active PROzac 20 MG 1 capsule in the mor richard Orally Once a day Active Levothyroxine Sodium 75 MCG 1 tablet in the morning on an empty stomach Orally Once a day for 30 day(s) Active Ketoconazole 2 % 1 application to aff ected area Externally three times a day 01/14/2017 Active Atorvastatin Calcium 10 MG 1 tablet Oral ly Once a day for 30 day(s) Active Sertraline HCl 50 MG 1 tablet Orally Onc e a day for 30 day(s) Active Anastrozole 1 MG 1 tablet Orally Once a day Active Vitamin D 1000 UNIT 1 tablet Orally Once a day Active Immunizations Vaccine Route Administration Date Status Comme nts Influenza IM Intramuscular 08/30/2014 Administered Social History Tobacco Use: Social History Observation Description Date Details (start date - stop date) Former Smoker NA - NA Tobacco Use/Smoking Question Answer Notes Patient is a former smoker How long has it been since you last smoked? 5-10 years Additional Findings: Tobacco Non-User Ex-cigaret te smoker Alcohol Screen Question Answer Notes Did you have a drink containing alcohol in the p ast year? No Points 0 Interpretation Negative Problems Problem Type SNOMED Code ICD Code Onset Dates Problem Status W/U Status Risk Notes Problem 5254496 Former smoker (Z87.891) Active confirmed She is highly motivated not to smoke. We have discussed methods of prevention of relapse in times of stress. Problem 966769528 Obesity (E66.9) Active confirmed We discussed her weight loss strategies today. She will continue to try to reduce calories and exercise regularly. Problem 357354018 Thrombocytopenia (D69.6) Active confirmed Her platelet count is now 125,000. She avoids aspirin. She has not bleeding. This value will be observed. 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 There is no sign of new primary. Surveillance will continue. She will come to the office to be examined in the near future at regular intervals. Problem 41933536 Other emphysema (J43.8) Active confirmed Her COPD is stable and there is no need to change any of her medications today. 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 It is either allergic or infections. Problem 789107339 Acquired hypothyroidism (E03.9) Active confirmed Her TSH is now over 10. She will likely benefit from thyroid replacement. I will make a primary care physician aware of this value. Plan Of Treatment Pending Test Test Name Order Date PROFILE, FASTING (COMPREHENSIVE METABOLI C) 10/21/2020 PROFILE, FASTING (COMPREHENSIVE METABOLI C) 10/10/2021 PROFILE, RANDOM (COMPREHENSIVE METABOLIC ) 03/19/2018 PROFILE, RANDOM (COMPREHENSIVE METABOLIC ) 08/20/2017 PROFILE, RANDOM (COMPREHENSIVE METABOLIC ) 10/25/2020 LIPID PANEL 10/21/2020 LIPID PANEL 10/10/2021 TSH (THYROID STIMULATING HORMONE) 2020 TSH (THYROID STIMULATING HORMONE) 2021 FERRITIN 10/25/2020 CBC w DIFF 10/25/2020 CBC w DIFF 10/21/2020 CBC w DIFF 10/10/2021 CBC w DIFF 03/19/2018 CBC w DIFF 08/20/2017 SED RATE (ESR) 10/25/2020 CA 27.29 08/20/2017 CA 27.29 10/21/2020 CA 27.29 03/19/2018 MAMMOGRAM DIGITAL SCREEN LEFT UNI 2017 VITAMIN D 25-OH TOTAL 10/25/2020 3D UNILA SCREENING MAMMO 10/21/2020 Next Appt Details Provider Name:Palomo Frazier, 12/25/2024 04:00:00 PM, [address] [place] [address] [address], [address], [place], [address], Insurance Providers Payer Name Payer Address Payer Phone Subscriber Number Group Number Insured Name Patient Relationship to Insured Coverage Start Date Coverage End Date [facility] [address] [facility] [address] [facility] [place] [phone] [id number] LeblancQuyen sandhu Self - patient is the insured MEDICARE NGS [address] [place] [address] [id number] Quyen Leblanc Self - patient is the insured Medical (General) History Medical History History ICD Code carcinoma of the right breast in May 2013 multiple episodes of diverticulitis renal stone gross hematuria ex-smoker since 1998, 20 pack years asthma thrombocytopenia emphysema heterozygous for H63D hemochromotosis mu tation BrCa 1 and 2 negative anastrolzole quit date November 2018 repaired left lower quadrant abdominal w all hernia Surgical History Surgery Date(Month/Year) childhood tonsillectomy Palmira procedure for diverticulitis Au jaquelin 2012 right breast lumpectomy and sentinel lym ph node sampling June 2013 reversal of sigmoid colostomy May 12, 2013 unremarkable colonoscopy May 2013 right modified radical mastectomy Septem 2012 left lower quadrant. Indirect herniorrha phy 2013
== END 2024-12-11 13:20 | disposition home or self-care (01) ==
LOC: HO.HMCH 12:42
PROVIDERS: PCP Internal Medicine; Visit Provider Physician Assistant Medical
DX: J40 Bronchitis, not specified as acute or chronic (principal)

== ENCOUNTER → 2024-12-11 12:42 | Outpatient (BNVA) | payer MEDICARE, SELFPAY | PROVIDERS: PCP Internal Medicine; Visit Provider Physician Assistant Medical | DX: J40 Bronchitis, not specified as acute or chronic (principal) | CPT/HCPCS: 96127 ==

== ENCOUNTER 2024-12-16 13:12 | Outpatient (REF) | payer MEDICARE, SELFPAY ==
--- NOTE | ~2024-12-16 | XR_ITS ---
EXAMINATION: XR CHEST CLINICAL INFORMATION: R05.9 - Cough, unspecified COMPARISON: December 17, 2019. TECHNIQUE: 2 views of the chest were obtained. FINDINGS: No consolidation pleural effusion or pneumothorax. Linear opacity left lower hemithorax. Vascular clips overlapping the upper right hemithorax. Cardiomediastinal silhouette size is normal. Multilevel thoracic and upper lumbar stenosis. S-shaped curvature of the thoracolumbar spine. Degenerative changes in the acromioclavicular joints. XR/XR chest 2V IMPRESSION: No acute airspace disease. Subsegmental atelectasis versus scarring, left lung base/lingula. Electronically signed by: Markus Heaton MD 12/16/2024 02:16 PM EDT
--- OUTSIDE RECORDS SUMMARY | 2024-12-16 15:28 | XMS_ITS | Patient Health Record ---
Author Organization Palomo Frazier III, MD Address [address] [place] [address] Care Team Providers Care Rig Operator Name Role Phone Kylie, Kartik Primary Care Provider Palomo Elliott Unavailable [phone] Allergies Allergen (clinical drug ingredient) Drug/Non Drug [...] Problem Status W/U Status Risk Notes Problem 5791208 Former smoker (Z87.891) Active confirmed She is highly motivated not to smoke. We have discussed methods of prevention of relapse in times of stress. Problem 963881561 Obesity (E66.9) Active confirmed We discussed her weight loss strategies today. She will continue to try to reduce calories and exercise regularly. Problem 228955105 Thrombocytopenia (D69.6) Active confirmed Her platelet count is now 125,000. She avoids aspirin. She has not bleeding. This value will be observed. 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 There is no sign of new primary. Surveillance will continue. She will come to the office to be examined in the near future at regular intervals. Problem 74716551 Other emphysema (J43.8) Active confirmed Her COPD is stable and there is no need to change any of her medications today. 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 It is either allergic or infections. Problem 913552777 Acquired hypothyroidism (E03.9) Active confirmed Her TSH is now over 10. She will likely benefit from thyroid replacement. I will make a primary care physician aware of this value. Plan Of Treatment Pending Test Test Name Order Date PROFILE, FASTING (COMPREHENSIVE METABOLI C) 10/21/2020 PROFILE, FASTING (COMPREHENSIVE METABOLI C) 10/10/2021 PROFILE, RANDOM (COMPREHENSIVE METABOLIC ) 08/20/2017 PROFILE, RANDOM (COMPREHENSIVE METABOLIC ) 10/25/2020 PROFILE, RANDOM (COMPREHENSIVE METABOLIC ) 03/19/2018 LIPID PANEL 10/21/2020 LIPID PANEL 10/10/2021 TSH (THYROID STIMULATING HORMONE) 2020 TSH (THYROID STIMULATING HORMONE) 2021 FERRITIN 10/25/2020 CBC w DIFF 08/20/2017 CBC w DIFF 10/25/2020 CBC w DIFF 10/21/2020 CBC w DIFF 10/10/2021 CBC w DIFF 03/19/2018 SED RATE (ESR) 10/25/2020 CA 27.29 10/21/2020 CA 27.29 03/19/2018 CA 27.29 08/20/2017 MAMMOGRAM DIGITAL SCREEN LEFT UNI 2017 VITAMIN D 25-OH TOTAL 10/25/2020 3D UNILA SCREENING MAMMO 10/21/2020 Next Appt Details Provider Name:Palomo Frazier, 12/25/2024 04:00:00 PM, [address] [place] [address] [address], [address], [place], [address], Insurance Providers Payer Name Payer Address Payer Phone Subscriber Number Group Number Insured Name Patient Relationship to Insured Coverage Start Date Coverage End Date [facility] [address] [facility] [address] [facility] [place] [phone] [id number] LeblancQuyen sandhu Self - patient is the insured MEDICARE NGS [address] [place] [phone] [id number] Quyen Leblanc Self - patient is the [...]
--- OUTSIDE RECORDS SUMMARY | 2024-12-16 15:29 | XMS_ITS ---
Author Organization Palomo Frazier III, MD Address [address] [place] [address] [place] [address] Care Team Providers Care Chemical Engineering Technician Name Role Phone Malik Espinal Primary Care Provider Palomo Elliott [phone] REASON FOR VISIT Follow up Encounters Encounter Location Date Provider Diagnosis Palomo Frazier III, MD [address] [place] [address] [address] [facility] [place] [address] 12/04/2024 Palomo Frazier Plan Of Treatment Next Appt Details Provider Name:Palomo Frazier, 12/25/2024 04:00:00 PM, [address] [place] [address] [place], [address], Progress Notes * Quyen ERICKSONhDOB:1954 (69 yo F)Acc No.[id number]:12/04/2024 Progress Notes Patient:?Quyen ERICKSON Provider:?Palomo Frazier MD :1955???Age:69 Y???Sex:Female D ate:12/04/2024 Address:[address] [place], [place] [id number] Pcp:Malik Espinal Subjective: * Chief Complaints: * [...] Frazier MD Date:?11/08 Generated for Sumanth henson/Shamika/Seth on:?12/16/2024 03:28 PM EDT
== END 2024-12-16 13:13 | disposition home or self-care (01) ==
LOC: HO.HMGCX 13:12
PROVIDERS: PCP Physician Assistant Medical; Visit Provider Physician Assistant Medical
DX: R05.9 Cough, unspecified (principal)
CPT/HCPCS: 71046

== ENCOUNTER → 2024-12-16 13:17 | Outpatient (BNV) | payer MEDICARE, SELFPAY | PROVIDERS: PCP Physician Assistant Medical; Visit Provider Radiology Diagnostic Radiology | DX: R05.9 Cough, unspecified (principal) | CPT/HCPCS: 71046 ==

== ENCOUNTER 2025-02-06 10:11 | Outpatient (AMB) | payer MEDICARE, SELFPAY ==
--- NOTE | 2025-02-06 12:02 | AM.OFFWIN_ITS ---
Intake Vital Signs 02/06/25 12:32 Height 5 ft 2 in BMI Reason not done Patient refused/unable BP 128/76 Blood Pressure Location Lt brachial Position Sitting Pulse 103 H Pulse Source Pulse Oximeter Temp 99.8 F Temp Source Oral Pulse Oximetry (%) 95 Oxygen Delivery Method Room Air Intake Visit Reasons: EP Covid?? Patient Tobacco Use Status: Former Tobacco user Allergies Sulfa (Sulfonamide Antibiotics) (SULFA (SULFONAMIDE ANTIBIOTICS)) Allergy (Intermediate, Verified 05/03/25 17:30) HIVES, severe hives Keflex Allergy (Unknown, Uncoded 05/03/25 17:30) Rash seasonal Allergy (Unknown, Uncoded 05/03/25 17:30) Watery Eye SEASONAL ALLERGIES Allergy (Unknown, Uncoded 05/03/25 17:30) CONGESTION/ASTHMA Sulfa Allergy (Unknown, Uncoded 05/03/25 17:30) Rash Do you need a note to return to daycare/school/sports/work: No HPI EP Covid?? HPI Details Patient is a 69-year-old female comes to the walk-in clinic complaining of COVID symptoms, with a history of emphysema, asthma and multiple other comorbidities. She reports she did a COVID test at home and was not sure if she had been positive. She has a frequent cough and has been having the chills, but sweating at night, and she does admit to being mildly short of breath with exertion. She denies shortness of breath at rest or currently, chest pain or chest congestion, headache, dizziness, myalgias or malaise, nausea vomiting or diarrhea, weakness, or other significant associated symptoms. [facility] Medical History (Updated 05/06/25 @ 13:12 by Cinda Calderon PA-C) Left atrial enlargement Mild diastolic dysfunction Colon cancer screening COPD with asthma Peripheral edema Elevated d-dimer Rib contusion Visit for suture removal Encounter for annual wellness exam in Medicare patient Right leg swelling Leg pain Left leg swelling Toenail fungus Lymphedema Chronic venous insufficiency SOB (shortness of breath) Cellulitis of left lower leg Cough Bronchitis Hyperkalemia Encounter for colorectal cancer screening using Cologuard test (~02/2024) Obesity Emphysema lung Breast cancer screening by mammogram (~11/09/24) Acquired hypothyroidism Mild hypercholesterolemia Vitamin D deficiency Depression Anxiety Renal lithiasis Diverticulitis Asthma Breast cancer Surgical History History of colonoscopy (~04/17/13) H/O mastectomy History of bowel resection Family History Sister Breast cancer Maternal Aunt Breast cancer Social History Housing: House Alcohol intake: current Alcohol intake frequency: holidays/special occasions only Patient Tobacco Use Status: Former Tobacco user e-Cigarette/Vaping Use: Never Used Second Hand Smoke Exposure: Yes service: No Current occupational status: employed Cognitive needs: No Hearing needs: No Vision needs: Yes (Reading glasses) Female Reproductive History Menstrual Age of Menarche: 8 Review of Systems Const All systems reviewed & are unremarkable except as noted in HPI and below Physical Exam Vital Signs: Last Vital Signs Temp 99.8 F 02/06/25 12:32 Pulse 103 H 02/06/25 12:32 BP 128/76 02/06/25 12:32 Pulse Ox 95 02/06/25 12:32 Oxygen Delivery Method Room Air 02/06/25 12:32 Const General: cooperative, comfortable, no acute distress, alert, awake, Physically active and well groomed; No anxious, diaphoretic, intoxicated appearing, poor hygiene or tired appearing Nutritional Appearance: average body habitus Orientation/consciousness: oriented to person Limitations: no limitations HEENT Head: Yes normal to inspection, Yes normocephalic and Yes atraumatic Ears: hearing grossly normal bilaterally, external ears normal, TM's normal bilaterally and EAC's normal General nose exam: Normal external nose present, Abnormal mucous membranes and turbinates present and Nasal discharge present Face and sinus: Yes normal facial exam, Yes sinuses nontender and Yes face symmetric Mouth: Normal oral and palatal mucosa present, lip normal, tongue normal, moist mucous membranes abnormal, no muffled voice and no trismus Throat: Yes posterior oropharynx normal, Yes uvula midline, Yes abnormal tonsil (mildly erythematous bilaterally), No peritonsillar mass, Yes postnasal drainage, No uvular edema and No cobblestoning Eyes General: appearance normal, both eyes and all related structures Neck Neck: Yes normal visual inspection, Yes no lymphadenopathy, Yes trachea midline, Yes supple and No anterior neck swelling Chest Chest palpation & inspection: normal palpation of entire chest wall Resp Effort & Inspection: normal respiratory effort, able to speak in complete sentences, no audible wheezes, Actively coughing (Frequent dry) Quality: dry, respiratory effort not decreased, no grunting, not labored, no nasal flaring, no pursed lip breathing, no respiratory distress, no retractions, no stridor, not tachypneic, no tripod positioning and symmetric chest movement Auscultation: clear to auscultation bilaterally, no crackles, no rales, no rhonchi, no wheezes, diminished lung sounds and No rub present Cardio Palpation: normal PMI Rate: regular rate Rhythm: regular rhythm Heart sounds: S1 normal heart sound present and S2 normal heart sound present Skin Other: Good color, warm and dry Neuro General: oriented to person Psych Appearance: grossly normal Mental Status: mental status grossly normal Speech and movement: Normal speech and movement present Affect: normal affect Attitude: cooperative Thought process: Normal thought process present Insight: Good insight present (Psych) Judgement: Good judgement present (Psych) Results Reviewed Results Reviewed: Two-view chest x-ray today shows no acute cardiopulmonary findings per my wet read, and consistent with radiologist read Assessment & Plan Assessment & Plan (1) COPD exacerbation: Code(s): J44.1 - Chronic obstructive pulmonary disease with (acute) exacerbation Plan: Patient is a 69-year-old female with history of COPD emphysema, who comes to the walk-in clinic positive for COVID. She reports she had test at home and was not sure if she had been positive. Our rapid test here confirmed it, and I did it two-view chest x-ray to rule out pneumonia, as she is mildly short of breath, especially with exertion. She has a frequent cough and has been having the chills, but sweating at night. Although she denies the COPD, and thinks she just has asthma as she has had since she was a child, I did advise that she treat it as a COPD exacerbation with acute COVID, and will write her for prednisone as well as azithromycin. However as she is COVID positive, I also prescribed her Paxlovid. She can trial Tessalon Perles for the cough. She knows to monitor the symptoms closely, and to follow up if she does not continue to improve over the weekend. She knows to go to the emergency department with worrisome symptoms Orders: Orders BinaxNOW Covid-19 Ag 02/06/25 Z20.822 - Contact with and (suspected) exposure to COVID-19 XR chest 2V 02/06/25 R05.9 - Cough, unspecified Medications: New prednisone then take 2 and half tabs daily for 3 days, then take 2 tabs daily for 3 days, then take 1 and half tabs daily for 3 days, and then take 1 tab daily for 3 days 60 mg (3 x 20 mg) PO DAILY 30 tabs 0RF 3 days nirmatrelvir-ritonavir 300 mg (150 mg x 2)-100 mg (Paxlovid) take TWO 150 mg tablets of nirmatrelvir with ONE 100 mg tablet of ritonavir twice daily for 5 days PO 30 ea 0RF benzonatate 200 mg PO BID-TID PRN 20 caps 0RF cough azithromycin take 500 mg today (day 1), then 250 mg for 4 days (days 2-5) PO 6 tabs 0RF Coding Level of Care Code Est Pt Level 4 (72934) Diagnoses COPD exacerbation J44.1
[2025-02-06 12:32] VITALS: BP 128/76; PULSE 103; TEMP 37.7; O2SAT 95
== END 2025-02-06 14:28 | disposition home or self-care (01) ==
LOC: HO.HMCWIC 10:11
PROVIDERS: PCP Physician Assistant Medical; Visit Provider Physician Assistant Medical
DX: J44.1 Chronic obstructive pulmonary disease with (acute) exacerbation (principal)

== ENCOUNTER 2025-02-06 10:11 | Outpatient (REF) | payer MEDICARE, SELFPAY ==
--- NOTE | ~2025-02-06 | XR_ITS ---
CLINICAL HISTORY: R05.9 - Cough, unspecified 2 view chest x-ray Comparison: CR/MO/SR - XR CHEST 2V - 12/16/24 13:25 EDT Findings: The lungs are clear. Normal size heart. No acute fracture. IMPRESSION: 1. No acute findings. This document has been electronically signed by: Francesco Celeste MD on 02/06/2025 15:11:38
[2025-02-06 13:46] LABS: Binax Now Covid-19 Ag Positive (Negative)
[2025-02-06 13:47] LABS: Binax Internal Control QC Valid; Binax Lot number: 869104; Binax Performed by: HO.BONILM
[2025-02-08 13:40] LABS: Influenza A PCR NEGATIVE (Negative); Influenza B PCR NEGATIVE (Negative); Resp Syncy Virus RNA Qual PCR NEGATIVE (Negative); SARS COV2 PCR INHOUSE POSITIVE (Negative)
== END 2025-02-06 10:12 | disposition home or self-care (01) ==
LOC: HO.HMGCX 10:11
PROVIDERS: PCP Physician Assistant Medical; Visit Provider Physician Assistant Medical
DX: J44.1 Chronic obstructive pulmonary disease with (acute) exacerbation (principal); R05.9 Cough, unspecified; R09.89 Other specified symptoms and signs involving the circulatory and respiratory systems; Z20.822 Contact with and (suspected) exposure to COVID-19
CPT/HCPCS: 0241U; 71046; 87811

== ENCOUNTER → 2025-02-06 13:41 | Outpatient (BNV) | payer MEDICARE, SELFPAY | PROVIDERS: PCP Physician Assistant Medical; Visit Provider Radiology Diagnostic Radiology | DX: R05.9 Cough, unspecified (principal) | CPT/HCPCS: 71046 ==

== ENCOUNTER 2025-02-08 12:46 | Outpatient (REF) | payer MEDICARE, SELFPAY | END 2025-02-08 12:47 | disposition home or self-care (01) | LOC: HO.LNP 12:46 | PROVIDERS: Visit Provider Physician Assistant Medical | DX: Z13.89 Encounter for screening for other disorder (principal) ==

== ENCOUNTER 2025-03-20 13:10 | Outpatient (AMB) | payer MEDICARE, SELFPAY ==
[2025-03-20 13:12] VITALS: BP 120/70; PULSE 76; TEMP 37; O2SAT 97
--- NOTE | 2025-03-20 13:12 | MHC.OFFWIV ---
Intake Vital Signs 03/20/25 13:12 Height 5 ft 2 in BMI Reason not done Patient refused/unable BP 120/70 Blood Pressure Location Lt brachial Position Sitting Pulse 76 Pulse Source Pulse Oximeter Temp 98.6 F Temp Source Oral Pulse Oximetry (%) 97 Oxygen Delivery Method Room Air Intake Visit Reasons: EP Bilat foot swelling Patient Tobacco Use Status: Former Tobacco user Allergies Sulfa (Sulfonamide Antibiotics) [SULFA (SULFONAMIDE ANTIBIOTICS)] Allergy (Intermediate, Verified 03/20/25 13:18) HIVES, severe hives Keflex Allergy (Unknown, Uncoded 12/11/24 12:57) Rash seasonal Allergy (Unknown, Uncoded 12/11/24 12:57) Watery Eye SEASONAL ALLERGIES Allergy (Unknown, Uncoded 12/11/24 12:57) CONGESTION/ASTHMA Sulfa Allergy (Unknown, Uncoded 12/11/24 12:57) Rash Medication List - Last Reconciled 03/20/25 by Sarah Beth Leyva, BROKE BEATER OPERATOR- albuterol sulfate 90 mcg/actuation 2 puffs inhalation Q6H PRN alprazolam 1 mg PO BID PRN aspirin (Adult Aspirin Regimen) 81 mg PO DAILY atorvastatin 10 mg PO DAILY cholecalciferol (vitamin D3) 50 mcg PO DAILY ergocalciferol (vitamin D2) (Vitamin D2) 1,250 mcg PO 2XW fluticasone propion-salmeterol 250-50 mcg/dose 1 ea inhalation BID inhalational spacing device (BreatheRite MDI Spacer) To be used with albuterol inhaler every 4-6 hours levothyroxine 100 mcg PO DAILY montelukast 10 mg PO DAILY sertraline 50 mg PO DAILY Do you need a note to return to daycare/school/sports/work: No HPI HPI Comments History of Present Illness Details History of Present Illness - The patient is a 69-year-old female presenting with bilateral lower extremity swelling. - Onset last Saturday, worsened over the week - No associated chest pain, shortness of breath, or recent weight gain, but recent weight loss. - Swelling lessens when legs are elevated but recurs with movement & standing - Has pain in calf on L side, hurts to walk; swelling worse on the L side. - Historical heart murmur. Review of Systems - General: Reports significant weight loss - Respiratory: Denies chest pain, denies shortness of breath - Cardiovascular: Reports bilateral lower extremity swelling; significant left leg swelling spotted by son - Current Medications: No new medications started recently Exam awake alert NAD RRR, 2/6 murmur, R sternal border (reports known) LS CTAB BLE + pedal pulse; skin intact. Skin to left calf and ankle mild erythema and warmth. No weeping. Pain behind calf w/ palp, + homans. +1-2 edema. LLE no erythema or warmth. +1 edema. Reviewed CXR 02/2025 [facility] Discussion Notes During the consultation, I discussed with the patient the concern of a possible deep vein thrombosis (DVT) as the cause of her left leg swelling. I emphasized the importance of ruling out this condition due to its serious implications. I explained that a stat ultrasound is necessary for immediate evaluation, which is not available outpatient at this time except during emergencies and obstetrics. Therefore, I recommended the patient seek care at the emergency department to facilitate immediate imaging and management if indicated. We discussed the difficulty in arranging an outpatient ultrasound during the weekend and the existing protocol limitations. We also talked about seeking care at the [facility]. I expressed understanding of the situation's urgency and encouraged her to seek evaluation promptly. Assessment and Plan 1. Bilateral lower extremity swelling - Suspected DVT; recommend urgent ER evaluation for ultrasound. - Discussed [facility] for potential wallace access. 2. Historical heart murmur - Stable without current changes; FU with PCP Patient Instructions - Seek evaluation at the emergency room for leg ultrasound to check for blood clots. - Keep legs elevated when possible to reduce swelling. - Monitor for any new symptoms like chest pain or shortness of breath and seek immediate care if they occur. Consent Patient was informed and verbally consented to the use of an ambient scribe for clinic note documentation during this visit. [facility] Medical History Cough Bronchitis Hyperkalemia Encounter for colorectal cancer screening using Cologuard test (~02/2024) Obesity Emphysema lung Breast cancer screening by mammogram (~11/09/24) Acquired hypothyroidism Mild hypercholesterolemia Vitamin D deficiency Depression Anxiety Renal lithiasis Diverticulitis Asthma Breast cancer Surgical History History of colonoscopy (~04/17/13) H/O mastectomy History of bowel resection Family History Sister Breast cancer Maternal Aunt Breast cancer Social History Housing: House Alcohol intake: never Patient Tobacco Use Status: Former Tobacco user e-Cigarette/Vaping Use: Never Used Second Hand Smoke Exposure: Yes service: No Current occupational status: employed and retired Cognitive needs: No Hearing needs: No Vision needs: Yes (Reading glasses) Female Reproductive History Menstrual Age of Menarche: 8 Physical Exam Vital Signs: Last Vital Signs Temp 98.6 F 03/20/25 13:12 Pulse 76 03/20/25 13:12 BP 120/70 03/20/25 13:12 Pulse Ox 97 03/20/25 13:12 Oxygen Delivery Method Room Air 03/20/25 13:12 Assessment & Plan Assessment & Plan (1) Swelling of lower leg: Comment: BILAT Code(s): M79.89 - Other specified soft tissue disorders (2) Redness and swelling of lower leg: Comment: LLE Code(s): M79.89 - Other specified soft tissue disorders; R23.8 - Other skin changes (3) Homans sign present: Comment: LEFT Code(s): R09.89 - Other specified symptoms and signs involving the circulatory and respiratory systems Plan . Coding Level of Care Code Est Pt Level 4 (40623) Diagnoses Swelling of lower leg M79.89 Redness and swelling of lower leg M79.89; R23.8 Homans sign present R09.89
== END 2025-03-20 13:36 | disposition home or self-care (01) ==
PROVIDERS: PCP Physician Assistant Medical; Visit Provider Nurse Practitioner Family
DX: M79.89 Other specified soft tissue disorders (principal); R23.8 Other skin changes; R09.89 Other specified symptoms and signs involving the circulatory and respiratory systems

== ENCOUNTER → 2025-03-20 13:10 | Outpatient (BNVA) | payer MEDICARE, SELFPAY | PROVIDERS: PCP Physician Assistant Medical | DX: R60.0 Localized edema (principal); M79.89 Other specified soft tissue disorders; R23.8 Other skin changes; R09.89 Other specified symptoms and signs involving the circulatory and respiratory systems | CPT/HCPCS: 99212 ==

== ENCOUNTER 2025-03-20 13:48 | Emergency (ER) | payer MEDICARE, SELFPAY ==
--- NOTE | ~2025-03-20 | US_ITS ---
CLINICAL HISTORY: calf pain and swelling Venous duplex ultrasound bilateral lower extremity Comparison: None Findings: The visualized deep veins are fully compressible with normal Doppler color flow and spectral tracings. No popliteal cyst. There is subcutaneous edema within the left leg. IMPRESSION: 1. Negative for bilateral lower extremity deep vein thrombosis. 2. Left leg subcutaneous edema. This document has been electronically signed by: Doug Wise MD on 03/20/2025 15:35:08
[2025-03-20 14:04] VITALS: BP 150/71; PULSE 89; RESP 18; TEMP 36.4; O2SAT 98; BMI 36.5
--- NOTE | 2025-03-20 14:04 | ED_ITS ---
HPI - General Adult General Chief complaint: Extremity Injury, Lower Stated complaint: swollen feet Time Seen by Provider: 03/20/25 14:21 Source: patient Mode of arrival: ambulatory Limitations: no limitations History of Present Illness ED Provider: Elizabeth Larry APRN HPI narrative: 69-year-old female with a history of hyperlipidemia, hypothyroidism presents to the ER with complaints of bilateral lower extremity swelling for the last 1 week. Patient reports that she has no history of congestive heart failure and does not take any diuretics. She has had issues with lower extremity swelling in the past which has resolved spontaneously. Patient reports that she has been quite active over the last week and has been on her feet and has been unable to elevate them as she normally is. She denies a high sodium diet. She does not use any compression stocking. She reports some pain in both legs. She noticed that the left leg now has warmth and redness. No fevers or chills. No chest pain or shortness of breath. No history of DVT or PE Related Data Home Medications ?Medication ?Instructions ?Recorded ?Confirmed atorvastatin 10 mg tablet 10 mg PO DAILY 05/07/23 03/20/25 ergocalciferol (vitamin D2) 1,250 1,250 mcg PO 2XW 05/07/23 03/20/25 mcg (50,000 unit) capsule (Vitamin D2) fluticasone 250 mcg-salmeterol 50 1 ea inhalation BID 05/07/23 03/20/25 mcg/dose blistr powdr for inhalation montelukast 10 mg tablet 10 mg PO DAILY 05/07/23 03/20/25 levothyroxine 100 mcg tablet 100 mcg PO DAILY 02/06/25 03/20/25 Previous Rx's ?Medication ?Instructions ?Recorded aspirin 81 mg tablet,delayed 81 mg PO DAILY #90 tabs 11/05/24 release (Adult Aspirin Regimen) cholecalciferol (vitamin D3) 50 50 mcg PO DAILY #90 caps 11/05/24 mcg (2,000 unit) capsule sertraline 50 mg tablet 50 mg PO DAILY #90 tabs 01/13/25 inhalational spacing device #1 ea 02/01/25 (BreatheRite MDI Spacer) alprazolam 1 mg tablet 1 mg PO BID PRN anxiety #60 tabs 03/09/25 albuterol sulfate 90 mcg/actuation 2 puff inhalation Q6H PRN 03/12/25 aerosol inhaler shortness of breath or wheezing #8.5 grams doxycycline hyclate 100 mg tablet 100 mg PO BID #20 tabs 03/20/25 furosemide 20 mg tablet (Lasix) 20 mg PO DAILY #5 tabs 03/20/25 Allergies Allergy/AdvReac Type Severity Reaction Status Date / Time Sulfa (Sulfonamide Allergy Intermediate HIVES, Verified 03/20/25 14:05 Antibiotics) severe [SULFA (SULFONAMIDE hives ANTIBIOTICS)] Keflex Allergy Unknown Rash Uncoded 12/11/24 12:57 seasonal Allergy Unknown Watery Eye Uncoded 12/11/24 12:57 SEASONAL ALLERGIES Allergy Unknown CONGESTION/ Uncoded 12/11/24 12:57 ASTHMA Sulfa Allergy Unknown Rash Uncoded 12/11/24 12:57 Review of Systems 2 Review of Systems: Yes all other systems are reviewed and are negative Constitutional: Constitutional: Reports no additional constitutional complaints, Denies body ache(s), Denies chills, Denies fever(s), Denies headache(s) and Denies weakness Eyes: Eyes: Reports no additional eye complaints and Denies change in vision ENT: Reports system reviewed and no additional complaints, except as documented, Denies dizziness, Denies headache(s), Denies nasal congestion, Denies nasal discharge and Denies neck pain Cardiovascular: Cardiovascular: Reports no additional cardiovascular complaints, Denies chest pain, Reports leg edema and Denies dyspnea Respiratory: Respiratory: Reports no additional respiratory complaints, Denies cough and Denies dyspnea Gastrointestinal: Gastrointestinal: Reports no additional gastrointestinal complaints, Denies abdominal pain, Denies diarrhea, Denies nausea and Denies vomiting Genitourinary: Genitourinary: Reports no additional female genitourinary complaints and Denies urinary incontinence Musculoskeletal: Musculoskeletal: Reports no additional musculoskeletal complaints, Denies back pain, Denies arthralgias, Denies joint swelling, Denies neck pain, Denies numbness and Denies tingling Integumentary/Breasts: Skin/Breast: Reports system reviewed and no additional complaints, except as docu, Reports swelling, Reports erythema and Denies rash Neurologic: Reports system reviewed and no additional complaints, except as documented, Denies Abnormal speech present, Denies dizziness, Denies headache(s), Denies numbness, Denies tingling and Denies weakness PMFSH Past Medical History Attestation statement: The following information was validated with the patient. Source: old records reviewed and nursing notes reviewed Medical History Cough Bronchitis Hyperkalemia Encounter for colorectal cancer screening using Cologuard test (~02/2024) Obesity Emphysema lung Breast cancer screening by mammogram (~11/09/24) Acquired hypothyroidism Mild hypercholesterolemia Vitamin D deficiency Depression Anxiety Renal lithiasis Diverticulitis Asthma Breast cancer Surgical History History of colonoscopy (~04/17/13) H/O mastectomy History of bowel resection Family History Family History Sister Breast cancer Maternal Aunt Breast cancer Social History Social History Housing: House Alcohol intake: never Patient Tobacco Use Status: Former Tobacco user e-Cigarette/Vaping Use: Never Used Second Hand Smoke Exposure: Yes Advance Directives: No Advance Directives Information Provided: No service: No Current occupational status: employed and retired Cognitive needs: No Hearing needs: No Vision needs: Yes (Reading glasses) Physical Exam ED Vital Signs: Vital Signs - 24 hr 03/20/25 14:04 03/20/25 15:52 Temperature 97.6 F 97.6 F Pulse Rate 89 89 Respiratory Rate 18 18 Blood Pressure 150/71 H 150/71 H Pulse Oximetry 98 98 Oxygen Delivery Method Room Air Room Air BMI result Body Mass Index 36.5 Const General: cooperative, healthy appearing, comfortable and no acute distress Orientation/consciousness: patient oriented x3 Limitations: no limitations HENMT Head: Yes normal to inspection Ears: hearing grossly normal bilaterally and TM's normal bilaterally General nose exam: Normal external nose present Face and sinus: Yes normal facial exam Mouth: Normal oral and palatal mucosa present Throat: Yes posterior oropharynx normal, Yes tonsils normal and Yes uvula midline Eyes General: appearance normal, both eyes and all related structures Pupils: Equal, round and reactive pupils present Neck Neck: Yes normal visual inspection, Yes full ROM, Yes no lymphadenopathy and Yes no meningeal signs Chest Chest palpation & inspection: normal inspection of the chest Resp Effort & Inspection: normal respiratory effort Auscultation: clear to auscultation bilaterally Cardio Rate: regular rate Rhythm: regular rhythm Peripheral pulses: Peripheral pulses 2+ throughout GI Inspection: Yes normal to inspection Palpation (GI): Soft to palpation and nontender Auscultation: normal bowel sounds Back/Spine/Pelvis Thoracic/Lumbar Spine: thoracic and lumbar spine normal to inspection Skin General skin exam: no rashes or lesions noted Neuro General: patient oriented x3, no meningeal signs, no focal motor deficits and normal sensation to monofilament Cranial nerves: Yes Equal, round and reactive pupils present Cognition (Neuro): normal cognition Speech: No Abnormal speech present Gait exam (Neuro): Normal gait present Motor exam (neuro): 5/5 motor strength present throughout Extrem Other: 2+ DP and PT pulses bilaterally. Normal sensation both lower extremities. Compartments are soft and compressible. General: Yes normal to inspection and Yes edema (2+ pitting edema) Course Course Course Narrative: This is a rapid medical exam performed by Valentín Flores NP: Additional HPI, ROS, PE not included below will be deferred to primary provider. Patient is a 69-year-old female with history of emphysema, asthma, breast CA, hypothyroidism presenting from urgent care with complaint of bilateral lower leg swelling and calf pain for the past week. Sent from urgent care for ultrasound to r/o DVT. Plan: labs, u/s Reevaluation(s) Reevaluation #1: 1540-labs are unremarkable. Ultrasound is negative for DVT. Patient will be started on a low-dose diuretic and recommended to limit salt, elevate the lower extremities in use compression stockings. I will also initiate her on oral antibiotic for the left lower extremity. She can follow-up outpatient with her primary care doctor which I recommended she do on the short-term. Reviewed worrisome signs and symptoms of when to return to the emergency room. Comfortable plan for discharge home. Medical Decision Making Medical Decision Making MDM Narrative: 69-year-old female with a history of hyperlipidemia, hypothyroidism presents to the ER with complaints of bilateral lower extremity swelling for the last 1 week. Patient reports that she has no history of congestive heart failure and does not take any diuretics. She has had issues with lower extremity swelling in the past which has resolved spontaneously. Patient reports that she has been quite active over the last week and has been on her feet and has been unable to elevate them as she normally is. She denies a high sodium diet. She does not use any compression stocking. She reports some pain in both legs. She noticed that the left leg now has warmth and redness. No fevers or chills. No chest pain or shortness of breath. No history of DVT or PE See PE for physical exam findings. There does appear to be bilateral lower extremity swelling left greater than right. There is also warmth and redness the left lower extremity which appears to have some cellulitis. Lungs are clear. Normal heart sounds. No reports of chest pain or shortness of breath compartments are soft and compressible. CMS is intact distally. Will obtain ultrasound, labs Differential Diagnosis Differential Diagnoses: The differential diagnosis associated with the presentation includes CHF, DVT, cellulitis Low suspicion for deeper space infection, necrotizing fasciitis, compartment syndrome, arterial occlusion Admission/Observation Consideration of admission/observation: Escalation of care including admission/observation considered Patient appears to have a mild cellulitis. She is nontoxic, no fever, no leukocytosis, compartments are soft and compressible. I believe that she can go home with the oral antibiotic and return for any worsening signs or symptoms that would qualify for admission Lab Data MDM Lab Attestation statement: I reviewed the patient's lab results. 03/20/25 14:55 03/20/25 14:55 Labs: Lab Results 03/20/25 Range/Units 14:55 WBC 5.3 (4.8-10.8) X10*3/uL RBC 4.67 (4.20-5.50) X10*6/uL Hgb 14.8 (12.0-16.0) g/dl Hct 43.7 (37.0-47.0) % MCV 93.6 (80.0-98.0) fL MCH 31.7 (27.0-33.0) pg MCHC 33.9 (31.0-35.0) g/dl RDW 13.4 (11.0-16.0) % Plt Count 138 L (160-400) X10*3/uL MPV 8.8 L (9.4-12.3) fL Immature Gran % (Auto) 0.4 (0.0-0.4) % Neut % (Auto) 62.4 (45-73) % Lymph % (Auto) 27.2 (20-40) % [place] % (Auto) 8.1 (2-11) % Eos % (Auto) 1.7 (0-4) % Baso % (Auto) 0.2 (0-2) % Lymph # (Auto) 1.4 (1.2-4.9) X10*3/uL [place] # (Auto) 0.4 (0.1-1.2) X10*3/uL Eos # (Auto) 0.1 (0.0-0.4) X10*3/uL Baso # (Auto) 0.0 (0.0-0.2) X10*3/uL Abs Immat Gran (auto) 0.02 (0.00-0.03) X10*3/uL Absolute Neuts (auto) 3.3 (2.0-8.3) x10*3/uL Absolute Nucleated RBC 0.000 (0.0-0.012) X10*3/uL Nucleated RBC % (auto) 0.0 (0.0-0.2) /100WBC Sodium 141 (135-145) mmol/L Potassium 3.8 D (3.3-5.1) mmol/L Chloride 107 (96-108) mmol/L Carbon Dioxide 25 (22-29) mmol/L Anion Gap 13 (12-20) BUN 12 (9-16) mg/dL Creatinine 0.60 (0.5-1.4) mg/dL Estim Creat Clear Calc 96.1 Estimated GFR > 60 Random Glucose 90 (60-115) mg/dL Calcium 9.5 (8.4-10.2) mg/dL Total Bilirubin 0.5 (0.0-1.0) mg/dL AST 27 (5-31) U/L ALT 19 (0-31) U/L Alkaline Phosphatase 134 H (39-117) U/L B-Natriuretic Peptide 69 (<100) pg/mL Total Protein 7.0 (6.5-8.0) g/dL Albumin 4.3 (3.5-5.0) g/dL Independent Interpretation I performed an independent interpretation of an: Ultrasound Interpretation: I independently viewed the ultrasound agree with the radiology report Radiology Impression Discussion of test interpretation with radiology: I have reviewed the radiologist's reading. Radiologist Impression: [address] [place] [address] Ultrasound Report Signed Patient: Quyen Rose MR#: [id number] : 1955 Acct:[id number] Age/Sex: 69 / F ADM Date: 03/20/25 Loc: HO.ED Attending Dr: Ordering Physician: Rhiannon Flores NP Date of Service: 03/20/25 Procedure(s): US venous duplex LE BI Accession Number(s): [id number] cc: Cinda Calderon PA-C; Rhiannon Flores NP~ CLINICAL HISTORY: calf pain and swelling Venous duplex ultrasound bilateral lower extremity Comparison: None Findings: The visualized deep veins are fully compressible with normal Doppler color flow and spectral tracings. No popliteal cyst. There is subcutaneous edema within the left leg. IMPRESSION: 1. Negative for bilateral lower extremity deep vein thrombosis. 2. Left leg subcutaneous edema. This document has been electronically signed by: Doug Wise MD on 03/20/2025 15:35:08 Discharge Plan Discharge Clinical Impression: Swelling of lower extremity, Cellulitis of left leg Patient Disposition: Home, Self-Care Instructions: Cellulitis (ED) Additional Instructions: Elevate your lower legs Buy compression stockings and were these daily Limit sodium intake Take medications as prescribed Call your primary care doctor on Saturday to follow-up Return for any worsening symptoms Prescriptions: New furosemide [Lasix] 20 mg tablet 20 mg PO DAILY Qty: 5 0RF doxycycline hyclate 100 mg tablet 100 mg PO BID Qty: 20 0RF No Action sertraline 50 mg tablet 50 mg PO DAILY Qty: 90 1RF (DME) BreatheRite MDI Spacer Spacer See Rx Instructions .Route Qty: 1 0RF Rx Instructions: To be used with albuterol inhaler every 4-6 hours alprazolam 1 mg tablet 1 mg PO BID PRN (Reason: anxiety) Qty: 60 0RF albuterol sulfate 90 mcg/actuation HFA aerosol inhaler 2 puff inhalation Q6H PRN (Reason: shortness of breath or wheezing) Qty: 8.5 1RF fluticasone propion-salmeterol 250-50 mcg/dose blister with device 1 ea inhalation BID montelukast 10 mg tablet 10 mg PO DAILY atorvastatin 10 mg tablet 10 mg PO DAILY ergocalciferol (vitamin D2) [Vitamin D2] 1,250 mcg (50,000 unit) capsule 1,250 mcg PO 2XW aspirin [Adult Aspirin Regimen] 81 mg tablet,delayed release (DR/EC) 81 mg PO DAILY Qty: 90 0RF cholecalciferol (vitamin D3) 50 mcg (2,000 unit) capsule 50 mcg PO DAILY Qty: 90 0RF levothyroxine 100 mcg tablet 100 mcg PO DAILY Referrals: Cinda Calderon PA-C [Primary Care Provider] - 5 days Interventions: ED Discharge Assessment Last Done: 03/20/25 15:52 Discharge Date/Time: 03/20/25 15:53 Print Language: Tunisian
[2025-03-20 15:01] LABS: MANUAL DIFF FLAG NO
[2025-03-20 15:03] LABS: Basophils Percent Auto 0.2 % (0-2); Eosinophils Absolute Auto 0.1 X10*3/uL (0.0-0.4); Eosinophils Percent Auto 1.7 % (0-4); Hematocrit 43.7 % (37.0-47.0); Hemoglobin 14.8 g/dl (12.0-16.0); Imm Gran Abs Auto 0.02 X10*3/uL (0.00-0.03); Imm Gran Pct Auto 0.4 % (0.0-0.4); Lymphocytes Absolute Auto 1.4 X10*3/uL (1.2-4.9); Lymphocytes Percent Auto 27.2 % (20-40); Mean Corpuscular HGB Conc 33.9 g/dl (31.0-35.0); Mean Corpuscular Hemoglobin 31.7 pg (27.0-33.0); Mean Corpuscular Volume 93.6 fL (80.0-98.0); Mean Platelet Volume 8.8 fL (9.4-12.3); Monocytes Absolute Auto 0.4 X10*3/uL (0.1-1.2); Monocytes Percent Auto 8.1 % (2-11); Neutrophils Absolute Auto 3.3 x10*3/uL (2.0-8.3); Neutrophils Percent Auto 62.4 % (45-73); Platelet Count 138 X10*3/uL (160-400); Red Blood Count 4.67 X10*6/uL (4.20-5.50); Red Cell Distribution Width 13.4 % (11.0-16.0); White Blood Count 5.3 X10*3/uL (4.8-10.8)
[2025-03-20 15:25] LABS: Alanine Aminotransferase 19 U/L (0-31); Albumin Level 4.3 g/dL (3.5-5.0); Alkaline Phosphatase 134 U/L (39-117); Anion Gap 13 (12-20); Aspartate Amino Transferase 27 U/L (5-31); Bilirubin Total 0.5 mg/dL (0.0-1.0); Blood Urea Nitrogen 12 mg/dL (9-16); Calcium 9.5 mg/dL (8.4-10.2); Carbon Dioxide 25 mmol/L (22-29); Chloride 107 mmol/L (96-108); Creatinine Clr Calc Pharmacy 96.1; Estimated Glomerular Filt Rate > 60; Glucose Random 90 mg/dL (60-115); Potassium 3.8 mmol/L (3.3-5.1); Sodium 141 mmol/L (135-145)
[2025-03-20 15:29] LABS: B Type Natriuretic Peptide 69 pg/mL (<100)
[2025-03-20 15:52] VITALS: BP 150/71; PULSE 89; RESP 18; TEMP 36.4; O2SAT 98
== END 2025-03-20 15:53 | disposition home or self-care (01) ==
PROVIDERS: Registered Nurse Emergency; Emergency Provider Emergency Medicine; PCP Physician Assistant Medical
DX: R60.0 Localized edema (principal); L03.116 Cellulitis of left lower limb; M79.605 Pain in left leg; M79.604 Pain in right leg; E78.00 Pure hypercholesterolemia, unspecified; E03.9 Hypothyroidism, unspecified; Z79.02 Long term (current) use of antithrombotics/antiplatelets; Z79.82 Long term (current) use of aspirin; Z79.899 Other long term (current) drug therapy; Z87.891 Personal history of nicotine dependence
CPT/HCPCS: 36415; 80053; 83880; 85025; 93970; 99282; 99284

== ENCOUNTER → 2025-03-20 14:06 | Outpatient (BNV) | payer MEDICARE, SELFPAY | PROVIDERS: Emergency Provider Emergency Medicine; PCP Physician Assistant Medical; Visit Provider Radiology Diagnostic Radiology | DX: R22.42 Localized swelling, mass and lump, left lower limb (principal) | CPT/HCPCS: 93970 ==

== ENCOUNTER 2025-03-26 14:12 | Outpatient (AMB) | payer MEDICARE, SELFPAY ==
--- NOTE | 2025-03-26 14:14 | A.OFFPC_ITS ---
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: No Accompanied by: Self / Same As Patient Allergies Sulfa (Sulfonamide Antibiotics) (SULFA (SULFONAMIDE ANTIBIOTICS)) Allergy (Intermediate, Verified 03/26/25 14:47) HIVES, severe hives Keflex Allergy (Unknown, Uncoded 03/26/25 14:47) Rash seasonal Allergy (Unknown, Uncoded 03/26/25 14:47) Watery Eye SEASONAL ALLERGIES Allergy (Unknown, Uncoded 03/26/25 14:47) CONGESTION/ASTHMA Sulfa Allergy (Unknown, Uncoded 03/26/25 14:47) Rash Medication List - Last Reconciled 03/26/25 by Cinda Calderon PA-C albuterol sulfate 90 mcg/actuation 2 puffs inhalation Q6H PRN alprazolam 1 mg PO BID PRN aspirin (Adult Aspirin Regimen) 81 mg PO DAILY atorvastatin 10 mg PO DAILY cephalexin 500 mg PO Q6H 10 days cholecalciferol (vitamin D3) 50 mcg PO DAILY doxycycline hyclate 100 mg PO BID furosemide (Lasix) 20 mg PO DAILY inhalational spacing device (BreatheRite MDI Spacer) To be used with albuterol inhaler every 4-6 hours levothyroxine 100 mcg PO DAILY montelukast 10 mg PO DAILY mupirocin 2% 1 appl topical TID Tobacco use date assessed: 03/26/25 Fall risk assessment: 1 Fall in past year Last assessed Fall Risk: 03/26/25 Dental Screening Dental Screen Date: 12/11/24 Did you have a dental visit in the last 12 months?: Yes Did you have a dental problem in the last 6 months where you did not have access to dental care?: No Was dental information given to patient?: Patient has dentist (partial dentures) HPI ER Discharge 2 HPI Details The patient is a 69-year-old female presenting for an ER discharge follow-up for cellulitis of the lower extremities. She visited the ER on March 20, 2025, due to increased swelling in the left lower extremity, which had been present for a week. An ultrasound showed no blood clot but confirmed swelling. The patient was diagnosed with mild cellulitis and prescribed doxycycline and Lasix. She reports improvement in symptoms since starting the medication. The patient has a history of chronic venous insufficiency, contributing to the swelling. She denies any history of congestive heart failure and does not take diuretics regularly. The patient uses compression stockings and reports no fever or chills since disc harge. Blood work was normal, with no elevated white blood cell count, and the platelet count was slightly low but consistent with previous results. [facility] Medical History (Updated 03/26/25 @ 14:51 by Cinda Calderon PA-C) Cellulitis of left lower leg Cough Bronchitis Hyperkalemia Encounter for colorectal cancer screening using Cologuard test (~02/2024) Obesity Emphysema lung Breast cancer screening by mammogram (~11/09/24) Acquired hypothyroidism Mild hypercholesterolemia Vitamin D deficiency Depression Anxiety Renal lithiasis Diverticulitis Asthma Breast cancer Surgical History History of colonoscopy (~04/17/13) H/O mastectomy History of bowel resection Family History Sister Breast cancer Maternal Aunt Breast cancer Social History Housing: House Alcohol intake: current Alcohol intake frequency: holidays/special occasions only Patient Tobacco Use Status: Former Tobacco user e-Cigarette/Vaping Use: Never Used Second Hand Smoke Exposure: Yes service: No Current occupational status: employed Cognitive needs: No Hearing needs: No Vision needs: Yes (Reading glasses) Female Reproductive History Menstrual Age of Menarche: 8 Questionnaire PHQ-9 Over the last 2 weeks, how often have you been bothered by any of the following problems? 1. Little interest or pleasure in doing things: not at all 2. Feeling down, depressed, or hopeless: not at all 3. Trouble falling or staying asleep, or sleeping too much: not at all 4. Feeling tired or having little energy: not at all 5. Poor appetite or overeating: not at all 6. Feeling bad about yourself - or that you are a failure or have let yourself or your family down: not at all 7. Trouble concentrating on things, such as reading the newspaper or watching television: not at all 8. Moving or speaking so slowly that other people could have noticed. Or the opposite - being so fidgety or restless that you have been moving around a lot more than usual: not at all 9. Thoughts that you would be better off or of hurting yourself in some way: not at all Total score: 0 Depression Screening Interpretation: Negative Depression Screening Done: Yes 54701 - PHQ-9 Billing: Yes Source: Developed by Drs. Palomo Bishop, Adriana Holman, Kennedy Weston and colleagues, with an educational yady from [employer]. Thrive Questionnaire Date Thrive assessed: 03/26/25 I am a: Patient What is your living situation today?: I have a steady place to live Within the past 12 months, did the food you bought not last and you didn't have the money to get more?: Never true Within the past 12 months, did you worry whether your food would run out before you got money to buy more?: Never true Do you have trouble paying for medicines?: No Do you have trouble getting transportation to medical appointments?: No Do you have trouble paying your heating and electricity bill?: No Do you have trouble taking care of your child, family member or friend?: No Do you have trouble with day-to-day activities such as bathing, preparing meals, shopping, managing finances, etc.?: No Are you currently unemployed and looking for a job?: No Are you interested in more education?: No Please select the resources that you would like help with: None THRIVE Score: 0 AUDIT C Alcohol Use Questionnaire (AUDIT-C) 1. How often do you have a drink containing alcohol?: Monthly or less 2. How many drinks containing alcohol do you have on a typical day when you are drinking?: 1 or 2 3. How often do you have six or more drinks on one occasion?: Never Total Score: 1 Score Reviewed/Action Taken: No RONY-7 AMB Questionnaire RONY-7 Date RONY - 7 assessed: 12/11/24 Feeling nervous, anxious, or on edge: 3 = Nearly every day (on medication) Not being able to stop or control worryin = Not at all Worrying too much about different things: 0 = Not at all Trouble relaxin = More than half the days Being so restless that it is hard to sit still: 0 = Not at all Becoming easily annoyed or irritable: 0 = Not at all Feeling afraid as if something awful might happen: 0 = Not at all Total RONY-7 score (0-4 normal; 5-9 mild; 10-14 moderate; 15-21 severe): 5 Source: Developed by Drs. Palomo Bishop, Adriana Holman, Kennedy Weston and colleagues, with an educational yady from [employer]. RONY-7 Assessment Billing RONY-7 Assessment Tool: RONY-7 Assessment 25332 Review of Systems Const Details: - Cardiovascular: Denies history of congestive heart failure. - Integumentary: Reports swelling and redness in the left lower extremity, improving with treatment. - General: Denies fever or chills since ER discharge. Physical exam (Primary Care) Vital Signs: Last Vital Signs Temp 97.7 F 03/26/25 14:17 Pulse 96 03/26/25 14:17 Resp 16 03/26/25 14:17 BP 146/63 H 03/26/25 14:17 Pulse Ox 96 03/26/25 14:17 Oxygen Delivery Method Room Air 03/26/25 14:17 BMI result Body Mass Index 37.9 Tobacco/Smoking Status: Tobacco use Status Tobacco use date assessed 03/26/25 03/26/25 14:27 Patient Tobacco Use Status Former Tobacco user 03/26/25 14:27 e-Cigarette/Vaping Use Never Used 03/26/25 14:27 PHQ-9: PHQ-9 Score PHQ-9: Total score 0 03/26/25 14:27 Depression Screening Interpretation: Negative Thrive Assessment: Date of Thrive Assessment Date Thrive assessed 03/26/25 03/26/25 14:27 Const Other: Appearance: Alert. Oriented X3. No acute distress. Head: Normal external exam. Normocephalic. Atraumatic. Eyes: Pupils are equal, round, and reactive to light. Extraocular movements intact. Conjunctiva and sclera normal. Eyelids normal. Throat: Pharynx normal. Uvula midline. Moist mucous membranes. Neck: Normal inspection. Neck supple. Full range of motion. Cardiovascular: Normal heart rate and rhythm. Pulses normal throughout. Respiratory: No respiratory distress. Painless inspiration. Back: No costovertebral angle tenderness. Full range of motion noted. Skin: Skin warm and dry. Normal skin color. Normal skin turgor. No rashes/lesions/lacerations noted. Extremities: Left lower extremity swollen, more than the right with some mild erythema which has significantly improved when compared to pictures from the ER visit that are in the chart. No lower extremity edema noted otherwise. Extremities exhibit normal range of motion. Extremities nontender. Neuro: Oriented X 3. No motor deficit. No sensory deficit. Reflexes normal. Results Reviewed Results Reviewed: - Ultrasound of the left lower extremity: No blood clot, confirmed swelling. - Blood work: Normal white blood cell count, slightly low platelet count consistent with previous results. Coding Level of Care Code Est Pt Level 4 (15157) Complex EM visit Add On G2211 Diagnoses Cellulitis of left lower leg L03.116 Swelling of lower leg M79.89 Additional Codes RONY-7 Assessment Billing - RONY-7 Assessment Tool: RONY-7 Assessment 53533 ([id number]) PHQ-9 - 26490 - PHQ-9 Billing: Yes ([id number]) Assessment & Plan Assessment & Plan (1) Cellulitis of left lower leg: Code(s): L03.116 - Cellulitis of left lower limb Category: Medical Plan: The patient was diagnosed with mild cellulitis and was prescribed doxycycline 100 mg twice daily and Lasix 20 mg for five days. The patient reports improvement in swelling and redness since starting the medication. A topical antibiotic, Bactroban, and a second oral antibiotic were recommended to enhance treatment efficacy. The patient was advised to continue doxycycline for 10 days and to use sunscreen due to potential photosensitivity. (2) Swelling of lower leg: Comment: BILAT Code(s): M79.89 - Other specified soft tissue disorders Category: Medical Plan: The patient has a history of chronic venous insufficiency, which may contribute to the swelling. The use of compression stockings was confirmed, and the patient was advised to continue their use. Referral to a vascular surgeon was discussed but declined by the patient. Plan Plan Patient was informed and verbally consented to the use of an ambient scribe for clinic note documentation during this visit. 1. Cellulitis Of The Lower Extremities The patient was diagnosed with mild cellulitis and was prescribed doxycycline 100 mg twice daily and Lasix 20 mg for five days. The patient reports improvement in swelling and redness since starting the medication. A topical antibiotic, Bactroban, and a second oral antibiotic were recommended to enhance treatment efficacy. The patient was advised to continue doxycycline for 10 days and to use sunscreen due to potential photosensitivity. 2. Chronic Venous Insufficiency The patient has a history of chronic venous insufficiency, which may contribute to the swelling. The use of compression stockings was confirmed, and the patient was advised to continue their use. Referral to a vascular surgeon was discussed but declined by the patient. I discussed with the patient the diagnosis of cellulitis and the treatment plan, including the use of doxycycline and Lasix. We reviewed the importance of completing the antibiotic course and using sunscreen to prevent photosensitivity. The option of a referral to a vascular surgeon for chronic venous insufficiency was offered but declined by the patient. Orders: Orders Comprehensive Met. Panel Today Z00.00 - Encounter for general adult medical examination without abnormal findings Complete Blood Count Auto Diff Today Z00.00 - Encounter for general adult medical examination without abnormal findings Magnesium Today Z00.00 - Encounter for general adult medical examination without abnormal findings Medications: New cephalexin 500 mg PO Q6H 40 caps 0RF 10 days mupirocin 2% 1 appl topical TID 22 grams 1RF Refilled albuterol sulfate 90 mcg/actuation 2 puffs inhalation Q6H PRN 8.5 grams 1RF shortness of breath or wheezing furosemide (Lasix) 20 mg PO DAILY 5 tabs 0RF Patient Instructions: - Continue taking doxycycline as prescribed for 10 days. - Apply Bactroban ointment to the affected area as directed. - Use sunscreen with SPF 50 or higher to prevent sunburn while on doxycycline. - Wear compression stockings to help manage swelling. - Schedule follow-up blood work to monitor sodium and potassium levels. - Contact the clinic if symptoms worsen or do not improve.
[2025-03-26 14:17] VITALS: BP 146/63; PULSE 96; RESP 16; TEMP 36.5; O2SAT 96; BMI 37.9
== END 2025-03-26 14:46 | disposition home or self-care (01) ==
LOC: HO.HMCSH 14:12
PROVIDERS: PCP Physician Assistant Medical; Visit Provider Physician Assistant Medical
DX: L03.116 Cellulitis of left lower limb (principal); M79.89 Other specified soft tissue disorders

== ENCOUNTER → 2025-03-26 14:12 | Outpatient (BNVA) | payer MEDICARE, SELFPAY | PROVIDERS: PCP Physician Assistant Medical; Visit Provider Physician Assistant Medical | DX: L03.116 Cellulitis of left lower limb (principal); M79.89 Other specified soft tissue disorders; I87.2 Venous insufficiency (chronic) (peripheral) | CPT/HCPCS: 96127; 99212 ==

== ENCOUNTER 2025-03-30 13:02 | Outpatient (AMB) | payer MEDICARE, SELFPAY ==
--- NOTE | 2025-03-30 13:11 | A.OFFPC_ITS ---
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 Accompanied by: Self / Same As Patient Allergies Sulfa (Sulfonamide Antibiotics) (SULFA (SULFONAMIDE ANTIBIOTICS)) Allergy (Intermediate, Verified 03/30/25 13:12) HIVES, severe hives Keflex Allergy (Unknown, Uncoded 03/30/25 13:12) Rash seasonal Allergy (Unknown, Uncoded 03/30/25 13:12) Watery Eye SEASONAL ALLERGIES Allergy (Unknown, Uncoded 03/30/25 13:12) CONGESTION/ASTHMA Sulfa Allergy (Unknown, Uncoded 03/30/25 13:12) Rash Tobacco use date assessed: 03/26/25 Dental Screening Dental Screen Date: 12/11/24 [facility] Medical History (Updated 03/26/25 @ 14:51 by Cinda Calderon PA-C) Cellulitis of left lower leg Cough Bronchitis Hyperkalemia Encounter for colorectal cancer screening using Cologuard test (~02/2024) Obesity Emphysema lung Breast cancer screening by mammogram (~11/09/24) Acquired hypothyroidism Mild hypercholesterolemia Vitamin D deficiency Depression Anxiety Renal lithiasis Diverticulitis Asthma Breast cancer Surgical History History of colonoscopy (~04/17/13) H/O mastectomy History of bowel resection Family History Sister Breast cancer Maternal Aunt Breast cancer Social History Housing: House Alcohol intake: current Alcohol intake frequency: holidays/special occasions only Patient Tobacco Use Status: Former Tobacco user e-Cigarette/Vaping Use: Never Used Second Hand Smoke Exposure: Yes service: No Current occupational status: employed Cognitive needs: No Hearing needs: No Vision needs: Yes (Reading glasses) Female Reproductive History Menstrual Age of Menarche: 8 Questionnaire Thrive Questionnaire Date Thrive assessed: 03/26/25 RONY-7 AMB Questionnaire RONY-7 Date RONY - 7 assessed: 12/11/24 Source: Developed by Drs. Palomo Bishop, Adriana Holman, Kennedy Weston and colleagues, with an educational yady from [employer]. Physical exam (Primary Care) Vital Signs: Last Vital Signs Temp 98.1 F 03/30/25 13:12 Pulse 104 H 03/30/25 13:12 Resp 16 03/30/25 13:12 BP 152/80 H 03/30/25 13:12 Pulse Ox 95 03/30/25 13:12 Oxygen Delivery Method Room Air 03/30/25 13:12 BMI result Body Mass Index 37.6 Tobacco/Smoking Status: Tobacco use Status Tobacco use date assessed 03/26/25 03/30/25 13:20 Patient Tobacco Use Status Former Tobacco user 03/30/25 13:20 e-Cigarette/Vaping Use Never Used 03/30/25 13:20 Thrive Assessment: Date of Thrive Assessment Date Thrive assessed 03/26/25 03/30/25 13:20 Coding Level of Care Code Est Pt Level 3 (92237) Complex EM visit Add On G2211 Diagnoses Cellulitis of left lower leg L03.116 Assessment & Plan Assessment & Plan (1) Cellulitis of left lower leg: Code(s): L03.116 - Cellulitis of left lower limb Category: Medical Plan: Previous visits reviewed. Complete antibiotics. No further meds. d/c furosemide Plan History of Present Illness - The patient is a 69-year-old female presenting with swelling of the feet and toenail fungus. - The swelling of the feet has been persistent, with exacerbation noted during periods of heat. - The patient reports that the swelling is still present and has not returned to normal. - The toenail fungus was identified, and the patient was advised to have a molding engineer check her nails. - The patient was informed about the potential need for a biopsy and culture due to the risk of liver effects from oral medications. Social History Review of Systems - Musculoskeletal: Reports swelling of the feet, denies difficulty walking except when swollen. Physical Exam General: Cooperative and healthy appearing Nutritional Appearance: Well nourished Orientation/consciousness: Patient oriented x3 Limitations: No limitations Head: Normal to inspection General: Appearance normal, both eyes and all related structures Neck: Normal visual inspection Chest: Normal palpation of entire chest wall Respiratory: N ormal respiratory effort Neurology: Patient oriented x3, no trouble walking, but swelling present in feet. Results Plan 1. Swelling Of The Feet - Discontinue furosemide as per current management plan. - Monitor for any changes in swelling and seek further evaluation if symptoms persist. 2. Toenail Fungus - Referral to a molding engineer for nail examination and potential biopsy and culture. - Discussed the risks of oral antifungal medications affecting the liver. Discussion Notes I discussed with the patient the discontinuation of furosemide and the importance of monitoring the swelling in her feet. I also advised her to consult a molding engineer for her toenail fungus, explaining the potential need for a biopsy and the risks associated with oral antifungal medications. Patient Instructions - Stop taking furosemide as advised. - Monitor foot swelling and seek medical attention if it worsens. - Schedule an appointment with a molding engineer for toenail examination.
[2025-03-30 13:12] VITALS: BP 152/80; PULSE 104; RESP 16; TEMP 36.7; O2SAT 95; BMI 37.6
== END 2025-03-30 13:45 | disposition home or self-care (01) ==
LOC: HO.HMCSH 13:02
PROVIDERS: PCP Internal Medicine; Visit Provider Internal Medicine
DX: L03.116 Cellulitis of left lower limb (principal)

== ENCOUNTER → 2025-03-30 13:02 | Outpatient (BNVA) | payer MEDICARE, SELFPAY | PROVIDERS: PCP Internal Medicine; Visit Provider Internal Medicine | DX: L03.116 Cellulitis of left lower limb (principal) | CPT/HCPCS: 99212 ==

== ENCOUNTER 2025-04-22 14:29 | Outpatient (AMB) | payer MEDICARE, SELFPAY ==
--- NOTE | 2025-04-22 14:29 | MHC.PC.OV ---
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: No Accompanied by: Self / Same As Patient Allergies Sulfa (Sulfonamide Antibiotics) (SULFA (SULFONAMIDE ANTIBIOTICS)) Allergy (Intermediate, Verified 04/22/25 14:54) HIVES, severe hives Keflex Allergy (Unknown, Uncoded 04/22/25 14:54) Rash seasonal Allergy (Unknown, Uncoded 04/22/25 14:54) Watery Eye SEASONAL ALLERGIES Allergy (Unknown, Uncoded 04/22/25 14:54) CONGESTION/ASTHMA Sulfa Allergy (Unknown, Uncoded 04/22/25 14:54) Rash Medication List - Last Reconciled 04/22/25 by Cinda Calderon PA-C albuterol sulfate 90 mcg/actuation 2 puffs inhalation Q6H PRN alprazolam 1 mg PO BID PRN aspirin (Adult Aspirin Regimen) 81 mg PO DAILY atorvastatin 10 mg PO DAILY cholecalciferol (vitamin D3) 50 mcg PO DAILY doxycycline hyclate 100 mg PO BID furosemide (Lasix) 20 mg PO DAILY inhalational spacing device (BreatheRite MDI Spacer) To be used with albuterol inhaler every 4-6 hours levothyroxine 100 mcg PO DAILY meloxicam 15 mg PO DAILY montelukast 10 mg PO DAILY Tobacco use date assessed: 03/26/25 Dental Screening Dental Screen Date: 12/11/24 Did you have a dental visit in the last 12 months?: Yes Did you have a dental problem in the last 6 months where you did not have access to dental care?: No Was dental information given to patient?: Patient has dentist HPI persistent edema, legs and ankles HPI Details The patient is a 69-year-old female presenting with lower extremity swelling and management of chronic venous insufficiency. Patient was seen here on 03/26/2025 and diagnosed with cellulitis and swelling of the lower extremities she was started on doxycycline and Keflex along with Lasix 20 mg. She was taking as prescribed and symptoms significantly improved although on 03/30/2025 she was seen by Dr. Espinal due to patient reported she had a gush of fluid discharge from the foot. Dr. Espinal believes it could be from the Lasix therefore he discontinued the Lasix at that time. Since discontinuing the Lasix patient reports she has had increased shortness of breath, dyspnea on exertion and worsening leg swelling. She denies any calf tenderness, chest pain or orthopnea. The patient reports a history of breast cancer with lymph node removal, which may contribute to lymphedema. The patient has been experiencing bilateral leg swelling, which was evaluated with an ultrasound that ruled out deep vein thrombosis last month. The patient also reports toenail fungus, which was noted during the examination. Social History - Family: The patient has a son who is a nurse and was present during the onset of symptoms. [facility] Medical History (Updated 04/22/25 @ 15:53 by Cinda Calderon PA-C) Toenail fungus Lymphedema Chronic venous insufficiency SOB (shortness of breath) Cellulitis of left lower leg Cough Bronchitis Hyperkalemia Encounter for colorectal cancer screening using Cologuard test (~02/2024) Obesity Emphysema lung Breast cancer screening by mammogram (~11/09/24) Acquired hypothyroidism Mild hypercholesterolemia Vitamin D deficiency Depression Anxiety Renal lithiasis Diverticulitis Asthma Breast cancer Surgical History History of colonoscopy (~04/17/13) H/O mastectomy History of bowel resection Family History Sister Breast cancer Maternal Aunt Breast cancer Social History Housing: House Alcohol intake: current Alcohol intake frequency: holidays/special occasions only Patient Tobacco Use Status: Former Tobacco user e-Cigarette/Vaping Use: Never Used Second Hand Smoke Exposure: Yes service: No Current occupational status: employed Cognitive needs: No Hearing needs: No Vision needs: Yes (Reading glasses) Female Reproductive History Menstrual Age of Menarche: 8 Questionnaire PHQ-9 Over the last 2 weeks, how often have you been bothered by any of the following problems? 1. Little interest or pleasure in doing things: not at all 2. Feeling down, depressed, or hopeless: not at all 3. Trouble falling or staying asleep, or sleeping too much: not at all 4. Feeling tired or having little energy: not at all 5. Poor appetite or overeating: not at all 6. Feeling bad about yourself - or that you are a failure or have let yourself or your family down: not at all 7. Trouble concentrating on things, such as reading the newspaper or watching television: not at all 8. Moving or speaking so slowly that other people could have noticed. Or the opposite - being so fidgety or restless that you have been moving around a lot more than usual: not at all 9. Thoughts that you would be better off or of hurting yourself in some way: not at all Total score: 0 Depression Screening Interpretation: Negative Depression Screening Done: Yes 87127 - PHQ-9 Billing: Yes Source: Developed by Drs. Palomo Bishop, Adriana Holman, Kennedy Weston and colleagues, with an educational yady from [employer]. Thrive Questionnaire Date Thrive assessed: 03/26/25 I am a: Patient What is your living situation today?: I have a steady place to live Within the past 12 months, did the food you bought not last and you didn't have the money to get more?: Never true Within the past 12 months, did you worry whether your food would run out before you got money to buy more?: Never true Do you have trouble paying for medicines?: No Do you have trouble getting transportation to medical appointments?: No Do you have trouble paying your heating and electricity bill?: No Do you have trouble taking care of your child, family member or friend?: No Do you have trouble with day-to-day activities such as bathing, preparing meals, shopping, managing finances, etc.?: No Are you currently unemployed and looking for a job?: No Are you interested in more education?: No Please select the resources that you would like help with: None THRIVE Score: 0 AUDIT C Alcohol Use Questionnaire (AUDIT-C) 1. How often do you have a drink containing alcohol?: Monthly or less 2. How many drinks containing alcohol do you have on a typical day when you are drinking?: 1 or 2 3. How often do you have six or more drinks on one occasion?: Never Total Score: 1 Score Reviewed/Action Taken: No RONY-7 AMB Questionnaire RONY-7 Date RONY - 7 assessed: 12/11/24 Feeling nervous, anxious, or on edge: 3 = Nearly every day (on medication) Not being able to stop or control worryin = Not at all Worrying too much about different things: 0 = Not at all Trouble relaxin = More than half the days Being so restless that it is hard to sit still: 0 = Not at all Becoming easily annoyed or irritable: 0 = Not at all Feeling afraid as if something awful might happen: 0 = Not at all Total RONY-7 score (0-4 normal; 5-9 mild; 10-14 moderate; 15-21 severe): 5 Source: Developed by Drs. Palomo Bishop, Adriana Holman, Kennedy Weston and colleagues, with an educational yady from [employer]. RONY-7 Assessment Billing RONY-7 Assessment Tool: RONY-7 Assessment 83003 Review of Systems Const Details: - Cardiovascular: Denies chest pain, orthopnea, or syncope. - Respiratory: Denies dyspnea on exertion or at rest. - Musculoskeletal: Reports bilateral lower extremity swelling. - Dermatological: Reports toenail changes consistent with fungal infection. Physical exam (Primary Care) Vital Signs: Last Vital Signs Temp 97.7 F 04/22/25 14:30 Pulse 89 04/22/25 14:30 Resp 20 04/22/25 14:30 BP 144/78 H 04/22/25 14:30 Pulse Ox 94 04/22/25 14:30 Oxygen Delivery Method Room Air 04/22/25 14:30 Care Plan Goal for BP management: <140/90 at goal BMI result Body Mass Index 38.9 BMI Assessment/Plan discussion: High BMI High, discussed plan: lifestyle, weight reduction, dietary, physical activity and alcohol moderation Tobacco/Smoking Status: Tobacco use Status Tobacco use date assessed 03/26/25 04/22/25 14:35 Patient Tobacco Use Status Former Tobacco user 04/22/25 14:35 e-Cigarette/Vaping Use Never Used 04/22/25 14:35 PHQ-9: PHQ-9 Score PHQ-9: Total score 0 04/22/25 14:35 Depression Screening Interpretation: Negative Thrive Assessment: Date of Thrive Assessment Date Thrive assessed 03/26/25 04/22/25 14:35 Const Other: Appearance: Alert. Oriented X3. No acute distress. Head: Normal external exam. Normocephalic. Atraumatic. Eyes: Pupils are equal, round, and reactive to light. Extraocular movements intact. Conjunctiva and sclera normal. Eyelids normal. Throat: Pharynx normal. Uvula midline. Moist mucous membranes. Neck: Normal inspection. Neck supple. Full range of motion. No JVD present. Cardiovascular: Normal heart rate and rhythm. Heart sound normal. No murmurs noted. Pulses normal throughout. Respiratory: No respiratory distress. Painless inspiration. Breath sounds normal. No wheezes/rales/rhonchi noted. Chest nontender. No accessory muscle usage noted or decreased air movement noted. Back: Full range of motion noted. Skin: Skin warm and dry. Normal skin color. Normal skin turgor. No rashes/lesions/lacerations noted. Extremities: + 3 pitting Lower extremity edema noted. Extremities exhibit normal range of motion. Results Reviewed Results Reviewed: - Ultrasound: No deep vein thrombosis detected. Coding Level of Care Code Est Pt Level 4 (86932) Complex EM visit Add On G2211 Diagnoses Chronic venous insufficiency I87.2 Lymphedema I89.0 Toenail fungus B35.1 Additional Codes RONY-7 Assessment Billing - RONY-7 Assessment Tool: RONY-7 Assessment 81485 ([id number]) PHQ-9 - 60678 - PHQ-9 Billing: Yes ([id number]) Assessment & Plan Assessment & Plan (1) Chronic venous insufficiency: Code(s): I87.2 - Venous insufficiency (chronic) (peripheral) Category: Medical Plan: The patient will be restarted on Lasix 20 mg twice daily to manage the swelling. An echocardiogram is ordered to assess cardiac function and rule out congestive heart failure. Referral to a vascular surgeon is made for further evaluation. (2) Lymphedema: Code(s): I89.0 - Lymphedema, not elsewhere classified Category: Medical Plan: The patient is advised to use a wedge pillow to elevate the legs and reduce swelling. Monitoring of symptoms and follow-up is recommended to assess the need for further intervention. (3) Toenail fungus: Code(s): B35.1 - Tinea unguium Category: Medical Plan: The patient is advised to continue monitoring the toenail condition and seek treatment if symptoms persist or worsen. Plan Plan Patient was informed and verbally consented to the use of an ambient scribe for clinic note documentation during this visit. 1. Chronic Venous Insufficiency The patient will be restarted on Lasix 20 mg twice daily to manage the swelling. An echocardiogram is ordered to assess cardiac function and rule out congestive heart failure. Referral to a vascular surgeon is made for further evaluation. 2. Lymphedema The patient is advised to use a wedge pillow to elevate the legs and reduce swelling. Monitoring of symptoms and follow-up is recommended to assess the need for further intervention. 3. Toenail Fungus The patient is advised to continue monitoring the toenail condition and seek treatment if symptoms persist or worsen. 4. Breast Cancer With Lymph Node Removal The patient is monitored for lymphedema as a complication of previous breast cancer treatment. I discussed with the patient the likelihood of chronic venous insufficiency contributing to her symptoms and the need for an echocardiogram to evaluate cardiac function. We also talked about the importance of resuming Lasix and the potential need for vascular surgery consultation. The patient was informed about the management of toenail fungus and the monitoring of lymphedema due to her history of breast cancer. Orders: Orders XR chest 2V Today - Other specified soft tissue disorders TSH reflex Free T4 Today Z00.00 - Encounter for general adult medical examination without abnormal findings Hemoglobin A1c Today Z00.00 - Encounter for general adult medical examination without abnormal findings CA echo transthoracic complete Today - Other specified soft tissue disorders, R06.02 - Shortness of breath B Type Natriuretic Peptide Today R60.0 - Localized edema Liver Panel Today Z00.00 - Encounter for general adult medical examination without abnormal findings US venous duplex UE BI Today M - Other specified soft tissue disorders CT angio chest PE protocol Today - Other specified soft tissue disorders, R06.02 - Shortness of breath D Dimer High Sensitivity Today - Other specified soft tissue disorders, R05.9 - Cough, unspecified, R06.02 - Shortness of breath Referrals Vascular Surgery Referral - Other specified soft tissue disorders, R06.02 - Shortness of breath Medications: New furosemide (Lasix) 20 mg PO BID 60 tabs 1RF 30 days M79.89 - Other specified soft tissue disorders, R06.02 - Shortness of breath atorvastatin 10 mg PO DAILY 90 tabs 1RF levothyroxine 100 mcg PO DAILY 90 tabs 3RF Patient Instructions: - Resume taking Lasix 20 mg twice daily as prescribed. - Schedule and complete the echocardiogram and follow up with results. - Use a wedge pillow to elevate legs and reduce swelling. - Monitor toenail condition and seek treatment if symptoms worsen. - Follow a low-salt diet to help manage swelling.
[2025-04-22 14:30] VITALS: BP 140/78; PULSE 89; RESP 20; TEMP 36.5; O2SAT 94; BMI 38.9
== END 2025-04-22 15:07 | disposition home or self-care (01) ==
LOC: HO.HMCSH 14:29
PROVIDERS: PCP Internal Medicine; Visit Provider Physician Assistant Medical
DX: I87.2 Venous insufficiency (chronic) (peripheral) (principal); I89.0 Lymphedema, not elsewhere classified; B35.1 Tinea unguium

== ENCOUNTER → 2025-04-22 14:29 | Outpatient (BNVA) | payer MEDICARE, SELFPAY | PROVIDERS: PCP Internal Medicine; Visit Provider Physician Assistant Medical | DX: I87.2 Venous insufficiency (chronic) (peripheral) (principal); B35.1 Tinea unguium; I89.0 Lymphedema, not elsewhere classified; M79.89 Other specified soft tissue disorders; Z85.3 Personal history of malignant neoplasm of breast | CPT/HCPCS: 96127; 99212 ==

== ENCOUNTER 2025-04-23 09:07 | Outpatient (AMB) | payer MEDICARE, SELFPAY ==
--- OUTSIDE RECORDS SUMMARY | 2025-04-23 09:10 | XMS_ITS | Patient Health Record ---
Author Organization Palomo Frazier III, MD Address [address] [place] [address] Care Team Providers Care Brand Director Name Role Phone Malik Espinal Primary Care Provider Palomo Elliott Unavailable [phone] Allergies Allergen (clinical drug ingredient) Drug/Non Drug Allergy documented on EMR Reaction Allergy Type Onset Date Status sulfacetamide Sulfacetamide Unknown Drug Allergy Active Reason For Referral No Information Medications Medication SIG (Take, Route, Frequency, Duration) Notes Start Date End Date Status Levothyroxine Sodium 75 MCG 1 tablet in the morning on an empty stomach Orally Once a day Active Sertraline HCl 50 MG 1 tablet Orally Onc e a day Active Atorvastatin Calcium 10 MG 1 tablet Oral ly Once a day Active Anastrozole 1 MG 1 tablet Orally Once a day Active Vitamin D 1000 UNIT 1 tablet Orally Once a day Active PROzac 20 MG 1 capsule in the mor richard Orally Once a day Active Xanax 0.25 MG 1 tablet Orally as needed Active Ketoconazole 2 % 1 application to aff ected area Externally three times a day 01/14/2017 Active Immunizations Vaccine Route Administration Date Status Comme nts Influenza IM Intramuscular 08/30/2014 Administered Social History Tobacco Use: Social History Observation Description Date Details (start date - stop date) Former Smoker NA - NA Tobacco Use/Smoking Question Answer Notes Patient is a former smoker How long has it been since you last smoked? 5-10 years Additional Findings: Tobacco Non-User Ex-cigaret te smoker Problems Problem Type SNOMED Code ICD Code Onset Dates Problem Status W/U Status Risk Notes Problem 6934812 Former smoker (Z87.891) Active confirmed She is highly motivated not to smoke. We have discussed methods of prevention of relapse in times of stress. Problem 831251073 Obesity (E66.9) Active confirmed We discussed her weight loss strategies today. She will continue to try to reduce calories and exercise regularly. Problem 930072320 Thrombocytopenia (D69.6) Active confirmed Her platelet count is now 125,000. She avoids aspirin. She has not bleeding. This value will be observed. 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 There is no sign of new primary. Surveillance will continue. She will come to the office to be examined in the near future at regular intervals. Problem 56295962 Other emphysema (J43.8) Active confirmed Her COPD is stable and there is no need to change any of her medications today. Problem 03700413 Calculus of kidn ey (N20.0) Active confirmed Problem 37322168 Fungal dermatiti s (B36.9) Active confirmed She will use ketoconazole on the area in the right neck. It is either allergic or infections. Problem 077568171 Acquired hypothyroidism (E03.9) Active confirmed Her TSH [...] HORMONE) 2021 FERRITIN 10/25/2020 CBC w DIFF 10/10/2021 CBC w DIFF 03/19/2018 CBC w DIFF 08/20/2017 CBC w DIFF 10/25/2020 CBC w DIFF 10/21/2020 SED RATE (ESR) 10/25/2020 CA 27.29 10/21/2020 CA 27.29 03/19/2018 CA 27.29 08/20/2017 MAMMOGRAM DIGITAL SCREEN LEFT UNI 2017 VITAMIN D 25-OH TOTAL 10/25/2020 3D UNILA SCREENING MAMMO 10/21/2020 Insurance Providers Payer Name Payer Address Payer Phone Subscriber Number Group Number Insured Name Patient Relationship to Insured Coverage Start Date Coverage End Date [facility] [address] [facility] [place] [phone] [id number] LeblancQuyen sandhu Self - patient is the insured MEDICARE NGS [address] [place] [address] [id number] Quyen Leblanc Self - patient is the [...] w all hernia Surgical History Surgery Date(Month/Year) left lower quadrant. Indirect herniorrha phy 2013 right modified radical mastectomy 2012 unremarkable colonoscopy May 2013 reversal of sigmoid colostomy May 12, 2013 right breast lumpectomy and sentinel lym ph node sampling June 2013 Palmira procedure for diverticulitis Yaritza hammer 2012 childhood tonsillectomy
[2025-04-23 09:54] VITALS: BP 126/70; PULSE 87; TEMP 36.7; O2SAT 95; BMI 39.3
--- NOTE | 2025-04-23 09:54 | AM.OFFWIN_ITS ---
Intake Vital Signs 04/23/25 09:54 Height 5 ft 1 in Weight 208 lb BMI 39.3 BP 126/70 Blood Pressure Location Lt brachial Position Sitting Pulse 87 Pulse Source Pulse Oximeter Temp 98.1 F Temp Source Oral Pulse Oximetry (%) 95 Oxygen Delivery Method Room Air Intake Visit Reasons: EP fell ~ rib injury, cut finger Intake Note: presents with left rib pain after falling this morning, also c/o cut RT thumb Patient Tobacco Use Status: Former Tobacco user Allergies Sulfa (Sulfonamide Antibiotics) (SULFA (SULFONAMIDE ANTIBIOTICS)) Allergy (Intermediate, Verified 04/23/25 09:55) HIVES, severe hives Keflex Allergy (Unknown, Uncoded 04/22/25 14:54) Rash seasonal Allergy (Unknown, Uncoded 04/22/25 14:54) Watery Eye SEASONAL ALLERGIES Allergy (Unknown, Uncoded 04/22/25 14:54) CONGESTION/ASTHMA Sulfa Allergy (Unknown, Uncoded 04/22/25 14:54) Rash HPI HPI Comments History of Present Illness Details This is a 69-year-old female presenting for evaluation of injuries sustained in a trip and fall at home this morning. Patient states she was going onto her screened in porch to water her plants when she tripped on the edge of the door jam and fell onto her left side. Patient states that she struck her left ribs on the door jam and cut her right thumb on the screen door. Patient denies any head injury or LOC as a result of her fall; tetanus immunization is UTD. [facility] Medical History (Updated 04/23/25 @ 11:21 by Rosetta Leyva PA-C) Toenail fungus Lymphedema Chronic venous insufficiency SOB (shortness of breath) Cellulitis of left lower leg Cough Bronchitis Hyperkalemia Encounter for colorectal cancer screening using Cologuard test (~02/2024) Obesity Emphysema lung Breast cancer screening by mammogram (~11/09/24) Acquired hypothyroidism Mild hypercholesterolemia Vitamin D deficiency Depression Anxiety Renal lithiasis Diverticulitis Asthma Breast cancer Surgical History History of colonoscopy (~04/17/13) H/O mastectomy History of bowel resection Family History Sister Breast cancer Maternal Aunt Breast cancer Social History Housing: House Alcohol intake: current Alcohol intake frequency: holidays/special occasions only Patient Tobacco Use Status: Former Tobacco user e-Cigarette/Vaping Use: Never Used Second Hand Smoke Exposure: Yes service: No Current occupational status: employed Cognitive needs: No Hearing needs: No Vision needs: Yes (Reading glasses) Female Reproductive History Menstrual Age of Menarche: 8 Review of Systems Const All systems reviewed & are unremarkable except as noted in HPI and below Eyes Reports no additional complaints ENT Reports no additional complaints Card Denies chest pain and Denies dyspnea Resp Reports no additional complaints and Denies dyspnea GI Reports no additional complaints Reports no additional complaints Musc Details: left lateral chest wall pain Skin/Breast Details: laceration right thumb Psych Reports no additional complaints Endo Reports no additional complaints Addison/Lymph Reports no additional complaints Aller/Immun Reports no additional complaints Physical Exam Vital Signs: Last Vital Signs Temp 98.1 F 04/23/25 09:54 Pulse 87 04/23/25 09:54 BP 126/70 04/23/25 09:54 Pulse Ox 95 04/23/25 09:54 Oxygen Delivery Method Room Air 04/23/25 09:54 BMI result Body Mass Index 39.3 Const General: cooperative, healthy appearing, comfortable, no acute distress, well developed, alert and awake; No ill appearing Nutritional Appearance: overweight Orientation/consciousness: patient oriented x3 Limitations: no limitations Neck Neck: Yes full ROM (no midline tenderness of cervical spine) Resp Effort & Inspection: normal respiratory effort Auscultation: clear to auscultation bilaterally Back/Spine/Pelvis Cervical Spine: normal cervical lordosis, cervical ROM normal, No cervical muscular tenderness, No pain with cervical ROM, No cervical spasm and No Cervical spine tenderness Skin Trauma: laceration (2cm linear laceration dorsal surface right thumb, minimal residual bleeding) Neuro General: patient oriented x3 Extrem Other: left lateral chest wall pain lower costal margin Right upper extremity: normal to inspection, full ROM, normal capillary refill and Extremity exam: right hand Details: tendon exam normal; no cyanosis, no edema and joint enlargement noted Psych Appearance: grossly normal Mental Status: mental status grossly normal Insight: Good insight present (Psych) Judgement: Good judgement present (Psych) Office Procedures Laceration Repair Procedure Location: right thumb 2cm dorsal surface, no FB EMLA: 2% Lidocaine w/Epi ([id number]) Text: After discussion of risk and benefits, written informed consent was obtained. The area was cleaned, prepped, and draped using sterile technique. The wound was debrided of any foreign material or devitalized tissue. Wound edg es were approximated and closed using [5-0 Monosof]. Standard wound dressing was applied. Wound care instructions were given []. The patient tolerated the procedure well. The patient was instructed to return for increased redness or red streaking, pain, swelling, pus, fevers, chills, or any other signs or symptoms of infection or worsening. Patient was instructed to return for suture removal in 7 days[]. Assessment & Plan Assessment & Plan (1) Chest wall pain: Comment: There are no acute fractures noted on imaging. Patient will be discharged home with Percocet for her pain. Code(s): R07.89 - Other chest pain Plan: Percocet q6 hours prn pain. (2) Thumb laceration: Comment: This laceration is approximated and closed with 6 simple interrupted 5-0 Monosof sutures. There is no bony pain on examination. Patient is instructed to return in 7 days for suture removal. Code(s): S61.019A - Laceration without foreign body of unspecified thumb without damage to nail, initial encounter Qualifiers: Damage to nail status: without damage Encounter type: initial encounter Foreign body presence: without foreign body Laterality: right Qualified Code(s): S61.011A - Laceration without foreign body of right thumb without damage to nail, initial encounter Plan: Suture removal in 7 days; patient will return sooner for any signs of infection. Orders: Orders XR ribs LT min 3V w CXR1V Today R07.89 - Other chest pain AMB Acetaminophen Adult Dose Today R07.89 - Other chest pain Medications: New oxycodone-acetaminophen 5-325 mg (Percocet) Partial Fill upon patient request. 1 tab PO Q6H PRN 10 tabs 0RF pain acetaminophen 650 mg (2 x 325 mg) PO ONCE 2 tabs 0RF R07.89 - Other chest pain Coding Level of Care Code Est Pt Level 4 (00720) Diagnoses Chest wall pain R07.89 Laceration of right thumb without foreign body without damage to nail, initial encounter S61.011A Damage to nail status: without damage Encounter type: initial encounter Foreign body presence: without foreign body Laterality: right Time Spent (min) 45
== END 2025-04-23 11:43 | disposition home or self-care (01) ==
PROVIDERS: PCP Internal Medicine; Visit Provider Physician Assistant
DX: S61.011A Laceration without foreign body of right thumb without damage to nail, initial encounter (principal); R07.89 Other chest pain

== ENCOUNTER 2025-04-23 09:07 | Outpatient (REF) | payer MEDICARE, SELFPAY ==
--- NOTE | ~2025-04-23 | XR_ITS ---
EXAMINATION: XR RIBS, LEFT CLINICAL INFORMATION: R07.89 - Other chest pain COMPARISON: February 06, 2025 TECHNIQUE: PA chest x-ray and 3 view rib series FINDINGS: Again seen are surgical clips projecting over the right upper chest, within the soft tissue superficial to the second and third ribs. Linear density with mild volume loss in the left lung base is similar to the prior examination and consistent with atelectasis versus scarring. Lungs are otherwise clear. Heart size is within normal limits. No lucency, cortical step-off, or deformity is noted in the ribs. XR/XR ribs LT min 3V w CXR1V IMPRESSION: Left basilar atelectasis or scarring. No acute abnormality. Electronically signed by: Jeremi Daniels MD 04/23/2025 11:03 AM EDT
[2025-04-23 12:57] LABS: MANUAL DIFF FLAG NO
[2025-04-23 13:02] LABS: Hematocrit 40.5 % (37.0-47.0); Hemoglobin 13.5 g/dl (12.0-16.0); Imm Gran Abs Auto 0.03 X10*3/uL (0.00-0.03); Imm Gran Pct Auto 0.5 % (0.0-0.4); Lymphocytes Absolute Auto 1.3 X10*3/uL (1.2-4.9); Mean Corpuscular HGB Conc 33.3 g/dl (31.0-35.0); Mean Corpuscular Hemoglobin 31.5 pg (27.0-33.0); Mean Corpuscular Volume 94.4 fL (80.0-98.0); NRBC Abs Auto 0.000 X10*3/uL (0.0-0.012); NRBC Pct Auto 0.0 /100WBC (0.0-0.2); Platelet Count 131 X10*3/uL (160-400); Red Blood Count 4.29 X10*6/uL (4.20-5.50); White Blood Count 6.2 X10*3/uL (4.8-10.8)
[2025-04-23 13:16] LABS: Hemoglobin A1C 132.6960 umol/L; Total Hemoglobin (HGBA1C) 3947.1717 umol/L
[2025-04-23 13:29] LABS: B Type Natriuretic Peptide 84 pg/mL (<100)
[2025-04-23 13:31] LABS: Alanine Aminotransferase 24 U/L (0-31); Albumin Level 4.2 g/dL (3.5-5.0); Alkaline Phosphatase 115 U/L (39-117); Anion Gap 14 (12-20); Aspartate Amino Transferase 33 U/L (5-31); Blood Urea Nitrogen 12 mg/dL (9-16); Calcium 9.1 mg/dL (8.4-10.2); Carbon Dioxide 25 mmol/L (22-29); Chloride 109 mmol/L (96-108); Estimated Glomerular Filt Rate > 60; Magnesium 2.3 mg/dL (1.6-2.6); Potassium 4.3 mmol/L (3.3-5.1); Sodium 144 mmol/L (135-145); Total Protein 6.9 g/dL (6.5-8.0)
[2025-04-23 14:26] LABS: D Dimer High Sensitivity 675 NG/ML
== END 2025-04-23 09:08 | disposition home or self-care (01) ==
LOC: HO.HMGCX 09:07
PROVIDERS: PCP Internal Medicine; Referring Provider Nurse Practitioner Family; Visit Provider Physician Assistant Medical
DX: Z00.00 Encounter for general adult medical examination without abnormal findings (principal); R07.89 Other chest pain; S61.011A Laceration without foreign body of right thumb without damage to nail, initial encounter; R06.02 Shortness of breath; R05.9 Cough, unspecified; M79.89 Other specified soft tissue disorders; R60.0 Localized edema; W01.198A Fall on same level from slipping, tripping and stumbling with subsequent striking against other object, initial encounter; Y93.H2 Activity, gardening and landscaping; Y92.009 Unspecified place in unspecified non-institutional (private) residence as the place of occurrence of the external cause
CPT/HCPCS: 12001; 36415; 71101; 80053; 82248; 83036; 83735; 83880; 84443; 85025; 85379; 99212

== ENCOUNTER → 2025-04-23 10:24 | Outpatient (BNV) | payer MEDICARE, SELFPAY | PROVIDERS: PCP Internal Medicine; Referring Provider Nurse Practitioner Family; Visit Provider Radiology Diagnostic Radiology | DX: R07.89 Other chest pain (principal) | CPT/HCPCS: 71101 ==

== ENCOUNTER 2025-05-03 15:31 | Outpatient (AMB) | payer MEDICARE, SELFPAY ==
[2025-05-03 15:32] VITALS: BP 146/64; PULSE 98; RESP 16; TEMP 36.6; O2SAT 94; BMI 37.8
--- NOTE | 2025-05-03 15:32 | MHC.PC.OV ---
Vital Signs 05/03/25 15:32 Height 5 ft 1.02 in Weight 200 lb BMI 37.8 BP 146/64 H Respiration 16 Pulse 98 Pulse Source Pulse Oximeter Temp 97.8 F Temp Source Temporal Artery Scan Pulse Oximetry (%) 94 Oxygen Delivery Method Room Air Intake Visit Reasons: Physical - see comments Head Housekeeper Required: No Accompanied by: Self / Same As Patient Allergies Sulfa (Sulfonamide Antibiotics) (SULFA (SULFONAMIDE ANTIBIOTICS)) Allergy (Intermediate, Verified 05/03/25 15:33) HIVES, severe hives Keflex Allergy (Unknown, Uncoded 05/03/25 15:33) Rash seasonal Allergy (Unknown, Uncoded 05/03/25 15:33) Watery Eye SEASONAL ALLERGIES Allergy (Unknown, Uncoded 05/03/25 15:33) CONGESTION/ASTHMA Sulfa Allergy (Unknown, Uncoded 05/03/25 15:33) Rash Tobacco use date assessed: 03/26/25 Dental Screening Dental Screen Date: 12/11/24 [facility] Medical History Right leg swelling Leg pain Left leg swelling Toenail fungus Lymphedema Chronic venous insufficiency SOB (shortness of breath) Cellulitis of left lower leg Cough Bronchitis Hyperkalemia Encounter for colorectal cancer screening using Cologuard test (~02/2024) Obesity Emphysema lung Breast cancer screening by mammogram (~11/09/24) Acquired hypothyroidism Mild hypercholesterolemia Vitamin D deficiency Depression Anxiety Renal lithiasis Diverticulitis Asthma Breast cancer Surgical History History of colonoscopy (~04/17/13) H/O mastectomy History of bowel resection Family History Sister Breast cancer Maternal Aunt Breast cancer Social History Housing: House Alcohol intake: current Alcohol intake frequency: holidays/special occasions only Patient Tobacco Use Status: Former Tobacco user e-Cigarette/Vaping Use: Never Used Second Hand Smoke Exposure: Yes service: No Current occupational status: employed Cognitive needs: No Hearing needs: No Vision needs: Yes (Reading glasses) Female Reproductive History Menstrual Age of Menarche: 8 Questionnaire PHQ-9 Over the last 2 weeks, how often have you been bothered by any of the following problems? 1. Little interest or pleasure in doing things: not at all 2. Feeling down, depressed, or hopeless: not at all 3. Trouble falling or staying asleep, or sleeping too much: not at all 4. Feeling tired or having little energy: not at all 5. Poor appetite or overeating: not at all 6. Feeling bad about yourself - or that you are a failure or have let yourself or your family down: not at all 7. Trouble concentrating on things, such as reading the newspaper or watching television: not at all 8. Moving or speaking so slowly that other people could have noticed. Or the opposite - being so fidgety or restless that you have been moving around a lot more than usual: not at all 9. Thoughts that you would be better off or of hurting yourself in some way: not at all Total score: 0 Depression Screening Interpretation: Negative Depression Screening Done: Yes 83656 - PHQ-9 Billing: Yes Source: Developed by Drs. Palomo Bishop, Adriana Holman, Kennedy Weston and colleagues, with an educational yady from [email or web address]. Thrive Questionnaire Date Thrive assessed: 04/22/25 I am a: Patient What is your living situation today?: I have a steady place to live Within the past 12 months, did the food you bought not last and you didn't have the money to get more?: Never true Within the past 12 months, did you worry whether your food would run out before you got money to buy more?: Never true Do you have trouble paying for medicines?: No Do you have trouble getting transportation to medical appointments?: No Do you have trouble paying your heating and electricity bill?: No Do you have trouble taking care of your child, family member or friend?: No Do you have trouble with day-to-day activities such as bathing, preparing meals, shopping, managing finances, etc.?: No Are you currently unemployed and looking for a job?: No Are you interested in more education?: No Please select the resources that you would like help with: None THRIVE Score: 0 AUDIT C Alcohol Use Questionnaire (AUDIT-C) 1. How often do you have a drink containing alcohol?: Monthly or less 2. How many drinks containing alcohol do you have on a typical day when you are drinking?: 1 or 2 3. How often do you have six or more drinks on one occasion?: Never Total Score: 1 Score Reviewed/Action Taken: No RONY-7 AMB Questionnaire RONY-7 Date RONY - 7 assessed: 04/22/25 Feeling nervous, anxious, or on edge: 3 = Nearly every day (on medication) Not being able to stop or control worryin = Not at all Worrying too much about different things: 0 = Not at all Trouble relaxin = More than half the days Being so restless that it is hard to sit still: 0 = Not at all Becoming easily annoyed or irritable: 0 = Not at all Feeling afraid as if something awful might happen: 0 = Not at all Total RONY-7 score (0-4 normal; 5-9 mild; 10-14 moderate; 15-21 severe): 5 Source: Developed by Drs. Palomo Bishop, Adriana Holman, Kennedy Weston and colleagues, with an educational yady from [email or web address]. RONY-7 Assessment Billing RONY-7 Assessment Tool: RONY-7 Assessment 26894 Physical exam (Primary Care) Vital Signs: Last Vital Signs Temp 97.8 F 05/03/25 15:32 Pulse 98 05/03/25 15:32 Resp 16 05/03/25 15:32 BP 146/64 H 05/03/25 15:32 Pulse Ox 94 05/03/25 15:32 Oxygen Delivery Method Room Air 05/03/25 15:32 BMI result Body Mass Index 37.8 Tobacco/Smoking Status: Tobacco use Status Tobacco use date assessed 03/26/25 05/03/25 15:34 Patient Tobacco Use Status Former Tobacco user 05/03/25 15:34 e-Cigarette/Vaping Use Never Used 05/03/25 15:34 PHQ-9: PHQ-9 Score PHQ-9: Total score 0 05/03/25 15:55 Depression Screening Interpretation: Negative Thrive Assessment: Date of Thrive Assessment Date Thrive assessed 04/22/25 05/03/25 15:34 Coding Additional Codes RONY-7 Assessment Billing - RONY-7 Assessment Tool: RONY-7 Assessment 79351 ([id number]) PHQ-9 - 35706 - PHQ-9 Billing: Yes ([id number])
--- OUTSIDE RECORDS SUMMARY | 2025-05-03 15:50 | XMS_ITS | Clinical Summary ---
Author Organization [facility] Address [facility] [place] [address] Care Team Providers Care Survey Associate Name Role Phone Unknown Primary Care Provider Unavailabl e Encounters Date Type Department Care Team Description 04/24/2025 Interpretation Only [address] [id number] Calos Juarez MD from Last 3 Months Social History Tobacco Use Types Packs/Day Years Used Date Smoking Tobacco: Never Assessed Comments Unknown Sex and Gender Information Value Date Recorded Sex Assigned at Not on file Legal Sex Female 11:52 AM EDT Gender Identity Not on file Sexual Orientation Not on file Plan of Treatment Health Maintenance Due Date Last Done Comments CT Colonography 1955 Colonoscopy 1955 Colorectal Cancer Screening 1955 FIT DNA 1955 FIT 1955 Sigmoidoscopy (10 year) with FIT yearly 1955 Sigmoidoscopy 1955 Hepatitis C Screening 1973 Tetanus/Diphtheria/Pertussis Vaccines (1 - Tdap) 06/26 Breast Cancer Share Decision Needed 1995 Breast Cancer screening 1995 Pneumoccocal Vaccine: 50+ (1 of 1 - PCV) 2005 Zoster vaccine (1 of 2) 2005 Advance Directive 2010 Bone Density Scan 2020 Covid-19 Vaccine (1 - season) 2024 Influenza (Flu) vaccine (1 o f 1 - Influenza standard series) 06/07/2025 Procedures Procedure Name Priority Date/Time Associated Diagnosis Comments CT ANGIOGRAM OF CHEST (NON-CORONARY) W CONTRAST STAT 04/24/2025 3:05 PM EDT from Last 3 Months Results * CT Angiogram Chest (Non-Coronary) w Contrast (04/24/2025 3:05 PM EDT) PT CLASS E RAD ADMITDTTM [id number] RAD PT [facility] INFO [id number]^AARTI^ CALOS^J RAD EXAM DESC CTTHAO^CT ANGIOGRAPHY CHEST^RIS [facility] WORKSTATION ID [id number] [facility] Anatomical Region Laterality Modality Chest Computed Tomogra phy Impressions 04/24/2025 3:27 PM EDT No pulmonary embolism identified. Thank you for letting us participate in the care of this patient. If you are a health care provider and have any questions regarding this report, please contact the number below. For patients who have questions please contact the health director medicare sales that requested your imaging first. Electronically signed by: Ximena Lincoln MD, [facility] ([phone]), at 04/24/2025 3:27 PM Narrative 04/24/2025 3:27 PM EDT EXAMINATION: CT ANGIOGRAPHY CHEST CLINICAL HISTORY: Reason for CT: +dimer, PCP request Add'l Info: TECHNIQUE: Helical CT angiogram of the chest was performed after the intravenous administration of contrast. Thin-section reconstructions as well as coronal and sagittal MIP reformatted images were generated to aid in evaluation. COMPARISON: None FINDINGS: Pulmonary arteries: The pulmonary arteries are well-opacified, with the main pulmonary artery measuring an average of 376 Hounsfield units. No intraluminal filling defects are identified. Other cardiovascular structures: Heart is normal in size. There is no pericardial effusion. The thoracic aorta is normal in caliber. Lungs and airways: There is no central endobronchial abnormality. Mild emphysema with right apical pleural-parenchymal scarring There is elevation of the left hemidiaphragm, with linear scarring or atelectasis at the left base. No acute airspace disease. Pleura: No effusion. No pneumothorax. Mediastinum and hilar structures: Small hiatal hernia. Limited views of the upper abdomen: Scattered calcified granulomata in the liver. Skeletal structures: No suspicious lesions. Procedure Note Ximena Lincoln MD - 04/24/2025 EXAMINATION: CT ANGIOGRAPHY CHEST CLINICAL HISTORY: Reason for CT: +dimer, PCP request Add'l Info: TECHNIQUE: Helical CT angiogram of the chest was performed after theintravenous administration of contrast. Thin-section reconstructions as well ascoronal and sagittal MIP reformatted images were generated to aid in evaluation. COMPARISON: None FINDINGS: Pulmonary arteries: The pulmonary arteries are well-opacified, with themain pulmonary artery measuring an average of 376 Hounsfield units. Nointraluminal filling defects are identified. Other cardiovascular structures: Heart is normal in size. There is no pericardial effusion. The thoracic aorta is normal in caliber. Lungs and airways: There is no central endobronchial abnormality. Mildemphysema with right apical pleural-parenchymal scarring There is elevation of theleft hemidiaphragm, with linear scarring or atelectasis at the left base. Noacute airspace disease. Pleura: No effusion. No pneumothorax. Mediastinum and hilar structures: Small hiatal hernia. Limited views of the upper abdomen: Scattered calcified granulomata inthe liver. Skeletal structures: No suspicious lesions. IMPRESSION No pulmonary embolism identified. Thank you for letting us participate in the care of this patient. If youare a health care provider and have any questions regarding this report,please contact the number below. For patients who have questions please contactthe health director medicare sales that requested your imaging first. Calos Juarez MD IMG CT ORDERABLES Final Result from Last 3 Months Insurance [facility] Care Teams Survey Associate Relationship Specialty Start Date End Date Unknown None PCP - General 04/26/25
--- NOTE | 2025-05-03 16:13 | A.OFFVIS_ITS ---
Intake Vital Signs 05/03/25 15:32 05/03/25 16:19 Height 5 ft 1.02 in Weight 200 lb BMI 37.8 37.8 BP 146/64 H Respiration 16 Pulse 98 Pulse Source Pulse Oximeter Temp 97.8 F Temp Source Temporal Artery Scan Pulse Oximetry (%) 94 Oxygen Delivery Method Room Air Intake Visit Reasons: Physical - see comments Games Manager Required: No Accompanied by: Self / Same As Patient Allergies Sulfa (Sulfonamide Antibiotics) (SULFA (SULFONAMIDE ANTIBIOTICS)) Allergy (Inte rmediate, Verified 05/03/25 17:30) HIVES, severe hives Keflex Allergy (Unknown, Uncoded 05/03/25 17:30) Rash seasonal Allergy (Unknown, Uncoded 05/03/25 17:30) Watery Eye SEASONAL ALLERGIES Allergy (Unknown, Uncoded 05/03/25 17:30) CONGESTION/ASTHMA Sulfa Allergy (Unknown, Uncoded 05/03/25 17:30) Rash Medication List - Last Reconciled 05/03/25 by Cinda Calderon PA-C albuterol sulfate 90 mcg/actuation 2 puffs inhalation Q6H PRN alprazolam 1 mg PO BID PRN aspirin (Adult Aspirin Regimen) 81 mg PO DAILY atorvastatin 10 mg PO DAILY cholecalciferol (vitamin D3) 50 mcg PO DAILY furosemide (Lasix) 20 mg PO BID 30 days inhalational spacing device (BreatheRite MDI Spacer) To be used with albuterol inhaler every 4-6 hours levothyroxine 100 mcg PO DAILY montelukast 10 mg PO DAILY oxycodone-acetaminophen 5-325 mg (Percocet) 1 tab PO Q12H PRN semaglutide (Ozempic) 0.25 mg subcut QWEEK HPI HPI Comments History of Present Illness Details Patient is here for an Annual Wellness Visit today. The patient is a 69-year-old female presenting for an annual wellness visit. The patient reported a thumb laceration sustained after a fall, which required stitches. The injury occurred the day after her last visit, and she sought urgent care for treatment. The stitches were removed today at this visit, but the wound remains slightly open and requires further healing. Therefore Steri- Strips were placed. She also experienced a rib contusion from the same fall, which resulted in significant pain but no fractures were identified. She was given a prescription for 10 Percocet which she has completed and requesting 1 more refill of this. The patient had an elevated D-dimer level, which prompted a visit to the emergency room. A CT scan of the chest was performed and returned negative for any acute pathology including PE in [place]. Her son, who works in the ER, advised her to monitor her symptoms overnight before seeking further care. The patient has a history of peripheral edema, for which she is taking furosemide. She reports improvement in her symptoms with the current dosage of 20 mg b.i.d.. She has a history of Chronic Obstructive Pulmonary Disease (COPD) and asthma, both of which are managed with her current treatment regimen. Preventative care measures discussed include the need for a colon cancer screening, given her history and the presence of a Cologuard test at home. List of all patient's Health Care Provider's PCP- Cinda Calderon PA-C Software Test And Validation Engineer- Dr. Crum Senior Client Advisor- Dr. Mitchell Reviewed past medical history- yes Reviewed surgical / hospitalization history- yes Reviewed family history- yes Reviewed current medications- yes Review all current providers patient is actively being followed by- yes Risk Factors Do exercise? intermittent brisk walks How many days per week? 3 Minutes per episode question? 45 minutes Do floss regularly? yes Do go to the dentist yearly? yes year and a half or every 6 months? no Do use a seatbelt in the vehicle? yes Sexual health: yes Do you use protection such as condom's? no Do you use Control? no Home safety Throw rugs? yes Grab bars? yes both bathroom's Raised toilet seat? no don't need one Working smoke detectors? yes Activities of daily living Do you have urinary incontinence? no Difficulty bathing or showering? no ?Difficulty dressing??no ?Difficulty grooming? no ?Difficulty feeding myself? no ?Difficulty using the toilet??no ?Difficulty getting in and out of bed??no ?Difficulty walking?no ?Receives help from other person's with any of the above tasks??no help indep endent works 2 days a week still Instrumental activities of daily living Uses telephone -?yes ?Gets to place out of walking distance- yes ?Who does the Food preparation??self ?Who goes shopping for groceries? self ?Can perform minor home maintenance-?self ?Can perform own laundry-?self ?Can perform own housework- self ?Manages own money/Finances-?self ?Transportation??self ?Do you Drive??yes ?Do you Drive at Night??yes ?Can you Manage own medications? yes If you can not manage your own medications, who does manage your medicati ons??self Fall risk assessment Fall risk? Have you had any falls with injuries in the past year? 5 due to trip hazards and patient improving this Have you had 2 or more falls in the past year? yes Fall risk assessment: fall risk patient Visit History Last Wellness Visit: Date? unsure If diabetic, last diabetic eye exam: Date? not a diabetic Last hospitalization: If any? none Additonal Services needed/Case Management Referrals? Social? none at this time Financial? none at this time Medical referrals? none at this time Education? Asthma? yes COPD? yes Diabetes? no Medication management? none at this time [facility] Medical History (Updated 05/03/25 @ 17:36 by Cinda Calderon PA-C) Colon cancer screening COPD with asthma Peripheral edema Elevated d-dimer Rib contusion Visit for suture removal Encounter for annual wellness exam in Medicare patient Right leg swelling Leg pain Left leg swelling Toenail fungus Lymphedema Chronic venous insufficiency SOB (shortness of breath) Cellulitis of left lower leg Cough Bronchitis Hyperkalemia Encounter for colorectal cancer screening using Cologuard test (~02/2024) Obesity Emphysema lung Breast cancer screening by mammogram (~11/09/24) Acquired hypothyroidism Mild hypercholesterolemia Vitamin D deficiency Depression Anxiety Renal lithiasis Diverticulitis Asthma Breast cancer Surgical History History of colonoscopy (~04/17/13) H/O mastectomy History of bowel resection Family History Sister Breast cancer Maternal Aunt Breast cancer Social History Housing: House Alcohol intake: current Alcohol intake frequency: holidays/special occasions only Patient Tobacco Use Status: Former Tobacco user e-Cigarette/Vaping Use: Never Used Second Hand Smoke Exposure: Yes service: No Current occupational status: employed Cognitive needs: No Hearing needs: No Vision needs: Yes (Reading glasses) Female Reproductive History Menstrual Age of Menarche: 8 Questionnaire Medicare Wellness Checkup What [age] What gender do you identify with?: female During the past 4 weeks, how much have you been bothered by emotional problems such as feeling anxious, depressed, irritable, sad or downhearted, and blue?: slightly During the past 4 weeks, has your physical & emotional health limited your social activities with family, friends, neighbors, or groups?: moderately During the past 4 weeks, how much bodily pain have you generally had?: moderate pain During the past 4 weeks, was someone available to help you if you needed & wanted help?: yes, quite a bit During the past 4 weeks, what was the hardest physical activity you could do for at least 2 minutes?: heavy Can you get to places out of walking distance without help? (For eg., can you travel alone on buses, taxis or drive your car?): Yes Can you go shopping for groceries or clothes without someone's help?: Yes Can you prepare your own meals?: Yes Can you do your housework without help?: Yes Because of any health problems, do you need the help of another person with your personal care needs such as eating, bathing, dressing or getting around the house?: No Can you handle your own money without help?: No During the past 4 weeks, how would you rate your health in general?: poor During the past 4 weeks how have things been going for you?: pretty bad Are you having difficulties driving your car?: no Do you always fasten your seat belt when you are in a car?: yes, usually During past 4 weeks, have you been bothered by the following: never: Falling or dizzy when standing up, Sexual problems?, Trouble eating well?, Teeth or denture problems? and Problems using the telephone? and sometimes: Tiredness or fatigue? Have you fallen 2 or more times in the past year?: Yes Are you afraid of falling?: Yes Are you a smoker?: no During the past 4 weeks, how many drinks of wine, beer, or other alcoholic beverages did you have?: 1 drink or less per week Do you exercise for about 20 minutes 3 or more times a week?: no, I usually do not exercise this much Have you been given information to help with the following?: no: Hazards in your house that might hurt you? How often do you have trouble taking medicines the way you have been told to take them?: I always take medicine as prescribed How confident are you that you can control & manage most of your health problems?: very confident What is your race?: White Mini Mental State Exam (MMSE) Orientation What is the (year) (season) (date) (day) (month)?: year, season, date, day and month Where are we (state) (county) (town or city) (hospital) (floor)?: state, county, town or city, hospital/clinic and floor Registration Name of 3 unrelated objects clearly and slowly, then ask patient to repeat all 3 of them. (1st repeat determines score. Make sure they can repeat all three): object 1, object 2 and object 3 Attention & Calculation (CHOOSE ONE) Ask pt to begin with 100 & count backward by 7. Stop after 5 repeats. If pt cannot ask them to spell the word WORLD backward.: 93, 86, 79, 72 and 65 Spell WORLD backwards (DLROW): 5 letters Recall Ask patient to repeat the 3 items from question #3.: object 1, object 2 and object 3 Language Show patient a wristwatch & ask what it is. Repeat for pencil.: watch and pencil Ask the patient to repeat the phrase 'No ifs, ands, or buts' after you.: correct Ask the patient to 'take a piece of paper with their right hand' 'fold paper in half' 'place paper on floor': take paper in right hand, fold paper in half and place paper on floor Print the sentence 'CLOSE YOUR EYES' on a piece. If patient actually closes eyes then score.: followed written direction Give patient a blank piece of paper & ask to write a sentence. Score if it contains a noun & verb.: sentence contains subject and verb Ask patient to copy figure of intersecting pentagons exactly. Score if all 10 angles & 2 intersects are included.: all 10 angles present & 2 are intersected Score Score: 35 Activity of Daily Living Bathing - sponge bath, tub bath or shower: receives no assistance (gets in/out by self, if usual bathing means Dressing - getting clothes from closets & drawers, including inner/outer garments & fasteners.: gets clothes & gets completely dressed without help Toileting - going to the 'toilet room' for urine/bowel elimination & cleaning self/arranging clothes: goes to toilet room, cleans self, arranges clothes wi thout help Transfer: moves in & out of bed and chair without help (may use support object) Continence: controls urination/bowel movements completely by self Feeding: feeds self without help Total Score: 0 Information obtained from: patient Using telephone: independent Traveling: independent Shopping: independent Preparing meals: independent Housework: independent Taking medicine: independent Managing money: independent PHQ-9 Over the last 2 weeks, how often have you been bothered by any of the following problems? 1. Little interest or pleasure in doing things: not at all 2. Feeling down, depressed, or hopeless: not at all 3. Trouble falling or staying asleep, or sleeping too much: not at all 4. Feeling tired or having little energy: not at all 5. Poor appetite or overeating: not at all 6. Feeling bad about yourself - or that you are a failure or have let yourself or your family down: not at all 7. Trouble concentrating on things, such as reading the newspaper or watching television: not at all 8. Moving or speaking so slowly that other people could have noticed. Or the opposite - being so fidgety or restless that you have been moving around a lot more than usual: not at all 9. Thoughts that you would be better off or of hurting yourself in some way: not at all Total score: 0 Depression Screening Interpretation: Negative Depression Screening Done: Yes 77424 - PHQ-9 Billing: Yes Source: Developed by Drs. Palomo Bishop, Adriana Holman, Kennedy Weston and colleagues, with an educational yady from [employer]. Review of Systems Const Details: - Respiratory: Reports dyspnea due to rib pain, denies persistent dyspnea. - Musculoskeletal: Reports rib pain, denies fractures. - Cardiovascular: Denies chest pain or palpitations. - Neurological: Denies dizziness or balance issues. - Gastrointestinal: Denies changes in bowel habits. - Genitourinary: Denies urinary incontinence. All systems reviewed & are unremarkable except as noted in HPI and below Physical Exam Vital Signs: Last Vital Signs Temp 97.8 F 05/03/25 15:32 Pulse 98 05/03/25 15:32 Resp 16 05/03/25 15:32 BP 146/64 H 05/03/25 15:32 Pulse Ox 94 05/03/25 15:32 Oxygen Delivery Method Room Air 05/03/25 15:32 BMI result Body Mass Index 37.8 Const Other: Appearance: Alert. Oriented X3. No acute distress. Head: Normal external exam. Normocephalic. Atraumatic. Eyes: Pupils are equal, round, and reactive to light. Extraocular movements intact. Conjunctiva and sclera normal. Eyelids normal. Throat: Pharynx normal. Uvula midline. Moist mucous membranes. Neck: Normal inspection. Neck supple. Full range of motion. Cardiovascular: Normal heart rate and rhythm. Heart sound normal. No murmurs noted. Pulses normal throughout. Respiratory: No respiratory distress. Breath sounds normal. No wheezes/rales/rhonchi noted. Chest nontender. No accessory muscle usage noted or decreased air movement noted. However, patient reports pain when breathing and coughing due to bruised ribs. Abdomen: Soft and nontender. Back: Full range of motion noted. Skin: Skin warm and dry. Normal skin color. Normal skin turgor. No rashes/lesions/lacerations noted. Stitches removed from the right thumb, which appears slightly open and still needs to heal. Extremities: No lower extremity edema. Extremities exhibit normal range of motion. Extremities nontender. Patient reports previous leg swelling, currently improved with Lasix. Neuro: Oriented X 3. No motor deficit. No sensory deficit. Reflexes normal. Patient reports a history of falls due to trip hazards, but is improving. HEENT Other: Hearing screening Whisper test- passed hearing test/whisper test Eyes Other: vision screening- see certified medical technician assistant notes Other: urinary incontinence? 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 - Imaging: CTA scan of the chest negative for acute pathology. Assessment & Plan Assessment & Plan (1) Encounter for annual wellness exam in Medicare patient: Code(s): Z00.00 - Encounter for general adult medical examination without abnormal findings (2) Visit for suture removal: Code(s): Z48.02 - Encounter for removal of sutures Plan: Patient now status post suture removal. Patient tolerated procedure well. Steri-Strips placed due to mild dehiscence of the wound. No signs of infection. The thumb laceration was treated with stitches, which have since been removed. The wound remains slightly open and requires further healing. The patient was advised to keep the area dry and avoid applying antibiotic ointment to prevent excessive moisture. (3) Rib contusion: Code(s): S29.8XXA - Other specified injuries of thorax, initial encounter Plan: The rib contusion resulted from a fall and caused significant pain. No fractures were identified on imaging. Pain management includes the use of prescribed analgesics, and the patient is advised to monitor for any worsening symptoms. (4) Elevated d-dimer: Code(s): R79.89 - Other specified abnormal findings of blood chemistry Plan: The elevated D-dimer prompted a CT scan of the chest, which was negative for acute pathology. The patient was advised to monitor symptoms and seek further evaluation if necessary. (5) Peripheral edema: Code(s): R60.0 - Localized edema Plan: Peripheral edema is being managed with furosemide, and the patient reports improvement. The current dosage appears effective, and the patient is advised to continue monitoring symptoms. (6) COPD with asthma: Code(s): J44.89 - Other specified chronic obstructive pulmonary disease Plan: The patient has a history of COPD, which is managed with her current treatment regimen. She is advised to continue her medications and monitor for any exacerbations. Asthma is managed with the patient's current treatment plan. She is advised to continue her medications and monitor for any exacerbations. (7) Colon cancer screening: Code(s): Z12.11 - Encounter for screening for malignant neoplasm of colon Plan: The patient is due for a colon cancer screening. She has a Cologuard test at home but is considering a colonoscopy due to her history. A referral for a colonoscopy was discussed. Plan Plan Patient was informed and verbally consented to the use of an ambient scribe for clinic note documentation during this visit. 1. Thumb Laceration The thumb laceration was treated with stitches, which have since been removed. The wound remains slightly open and requires further healing. The patient was advised to keep the area dry and avoid applying antibiotic ointment to prevent excessive moisture. 2. Rib Contusion The rib contusion resulted from a fall and caused significant pain. No fractures were identified on imaging. Pain management includes the use of prescribed analgesics, and the patient is advised to monitor for any worsening symptoms. 3. Elevated D-Dimer The elevated D-dimer prompted a CT scan of the chest, which was negative for acute pathology. The patient was advised to monitor symptoms and seek further evaluation if necessary. 4. Peripheral Edema Peripheral edema is being managed with furosemide, and the patient reports i mprovement. The current dosage appears effective, and the patient is advised to continue monitoring symptoms. 5. Chronic Obstructive Pulmonary Disease (Copd) The patient has a history of COPD, which is managed with her current treatment regimen. She is advised to continue her medications and monitor for any exacerbations. 6. Asthma Asthma is managed with the patient's current treatment plan. She is advised to continue her medications and monitor for any exacerbations. 7. Preventative Care: Colon Cancer Screening The patient is due for a colon cancer screening. She has a Cologuard test at home but is considering a colonoscopy due to her history. A referral for a colonoscopy was discussed. During the visit, we discussed the management of the patient's thumb laceration, advising her to keep the wound dry and avoid excessive moisture. We reviewed her rib contusion, emphasizing pain management and monitoring for any worsening symptoms. The elevated D-dimer was addressed with a CT scan, which was negative, and the patient was advised to monitor symptoms. We discussed her peripheral edema management with furosemide, which is currently effective. Her COPD and asthma management were reviewed, with a recommendation to continue her current treatment regimen. Preventative care was discussed, including the need for a colon cancer screening, and a referral for a colonoscopy was considered. Orders: Orders AMB Vision Screening Today Z01.00 - Encounter for examination of eyes and vision without abnormal findings Referrals Gastroenterology Referral Z12.11 - Encounter for screening for malignant neoplasm of colon Medications: New oxycodone-acetaminophen 5-325 mg (Percocet) Partial Fill upon patient request. 1 tab PO Q12H PRN 10 tabs 0RF pain Patient Instructions: - Keep the thumb wound dry and avoid applying antibiotic ointment. - Monitor rib pain and seek care if symptoms worsen. - Continue taking furosemide as prescribed and monitor for changes in swelling. - Follow current COPD and asthma treatment plans and watch for exacerbations. - Consider scheduling a colonoscopy for colon cancer screening. Quality Reporting (2019) Depression/Bipolar (159/160/161/177) PHQ-9: Total score: 0 Coding Level of Care Code Medicare First (G0438) Est Pt Level 4 (64730) Diagnoses Encounter for annual wellness exam in Medicare patient Z00.00 Visit for suture removal Z48.02 Rib contusion S29.8XXA Elevated d-dimer R79.89 Peripheral edema R60.0 COPD with asthma J44.89 Colon cancer screening Z12.11 CPT Codes Vision Screening - Vision Screenin - Vision Screening ([id number]) Additional Codes PHQ-9 - 63260 - PHQ-9 Billing: Yes ([id number]) Time Spent (min) 40
[2025-05-03 16:19] VITALS: BMI 37.8
== END 2025-05-03 16:55 | disposition home or self-care (01) ==
LOC: HO.HMCSH 15:31
PROVIDERS: PCP Internal Medicine; Visit Provider Physician Assistant Medical
DX: Z00.00 Encounter for general adult medical examination without abnormal findings (principal); J44.89 Other specified chronic obstructive pulmonary disease; Z48.02 Encounter for removal of sutures; S29.8XXA Other specified injuries of thorax, initial encounter; R79.89 Other specified abnormal findings of blood chemistry; R60.0 Localized edema; Z12.11 Encounter for screening for malignant neoplasm of colon; Z01.00 Encounter for examination of eyes and vision without abnormal findings

== ENCOUNTER → 2025-05-03 15:31 | Outpatient (BNVA) | payer MEDICARE, SELFPAY | PROVIDERS: PCP Internal Medicine; Visit Provider Physician Assistant Medical | DX: Z00.00 Encounter for general adult medical examination without abnormal findings (principal); R60.9 Edema, unspecified; J44.9 Chronic obstructive pulmonary disease, unspecified; R79.89 Other specified abnormal findings of blood chemistry; R60.0 Localized edema; J44.89 Other specified chronic obstructive pulmonary disease; H54.62 Unqualified visual loss, left eye, normal vision right eye; S29.8XXD Other specified injuries of thorax, subsequent encounter; S61.019D Laceration without foreign body of unspecified thumb without damage to nail, subsequent encounter; W19.XXXD Unspecified fall, subsequent encounter; Z48.02 Encounter for removal of sutures | CPT/HCPCS: 96127; 99212 ==

== ENCOUNTER → 2025-05-04 08:06 | Outpatient (REF) | payer MEDICARE, SELFPAY ==
--- OUTSIDE RECORDS SUMMARY | 2025-05-04 08:10 | XMS_ITS | Clinical Summary ---
Author Organization [facility] Address [facility] [place] [address] Care Team Providers Care Drone Software Development Engineer Name Role Phone Unknown Primary Care Provider Unavailabl e Encounters Date Type Department Care Team Description 04/24/2025 Interpretation Only [address] [id number] Calos Juarez MD from Last [...] PM EDT) PT CLASS E RAD ADMITDTTM [id number] RAD PT [facility] INFO [id number]^AARTI^ CALOS^J RAD EXAM DESC CTTHAO^CT ANGIOGRAPHY CHEST^RIS [facility] WORKSTATION ID [id number] [facility] Anatomical Region Laterality Modality Chest Computed Tomogra phy Impressions 04/24/2025 3:27 PM EDT No pulmonary embolism identified. Thank you for letting us participate in the care of this patient. If you are a health care provider and have any questions regarding this report, please contact the number below. For patients who have questions please contact the health home care giver that requested your imaging first. Narrative 04/24/2025 3:27 PM EDT EXAMINATION: CT [...] patients who have questions please contactthe health home care giver that requested your imaging first. Calos Juarez MD IMG CT ORDERABLES Final Result from Last 3 Months Insurance [facility] Care Teams Drone Software Development Engineer Relationship Specialty Start Date End Date Unknown None PCP - General 04/26/25
--- NOTE | 2025-05-04 08:11 | CA_ITS ---
Transthoracic Echocardiogram Patient (Last, First, Middle): Quyen Rose Beth Gender: Female Date of : 1955 Age: 69 Procedure Date: 05/04/2025 Procedure Type: Transthoracic Echocardiogram Location: OP Height: 154.94 cm Weight: 90.72 kg BSA: 1.89 m2 Heart Rate: bpm BP: 146 / 60 mmHg Aircraft Detail Draftsperson: CP/RC Referring MD: Cinda Calderon PA-C Propeller Mechanic: Giancarlo Rosales MD Symptoms: R06.02 - Shortness of breath Study Quality: Fair, contrast ECG Rhythm: Sinus Conclusions: - 1. Technically limited study 2. Normal LV ejection fraction 65-70% with impaired relaxation filling pattern 3. Calcific aortic and mitral valve changes noted with normal cardiac valvular Dopplers Findings Procedure Information Contrast agent, definity, is being given per protocol without apparent complications. Left Ventricle Normal left ventricular size, thickness, and systolic function. The visually estimated ejection fraction is between 65-70%. Spectral Doppler is indicative of an impaired relaxation filling pattern. E/E prime ratio is between 8 and 15 consistent with indeterminate filling pressures. Right Ventricle Normal right ventricular cavity size and systolic function. Atria The left atrium is likely dilated. There is no evidence of interatrial shunt. The right atrium is normal in size. Aortic Valve There is mild calcification of the aortic valve. There is no aortic valve stenosis. The peak aortic gradient is 9 mmHg.The mean gradient is 6 mmHg. There is no aortic valve regurgitation. Mitral Valve There is mild anterior and posterior mitral leaflet thickening. There is mild anterior and mild posterior mitral annular calcification. There is trace mitral valve regurgitation. There is no mitral valve stenosis. Pulmonic Valve The pulmonic valve was not well visualized. Tricuspid Valve Likely normal tricuspid valve structure and function. Tricuspid regurgitation envelope is inadequate for calculation of right ventricular systolic pressure. Indeterminate right atrial pressure. Great Vessels The aorta was not well visualized. The pulmonary artery was not well visualized. Venous The inferior vena cava was not well visualized. Pericardium/Pleural The pericardium was not well visualized. Prior Study Comparison No prior study available for comparison. Measurements 2D Linear Measurements IVSd: 1.13 0.6-0.9/0.6-1.0 cm LVIDd: 3.82 3.9-5.3/4.2-5.9 cm LVIDd Index: 2.02 2.4-3.2/2.2-3.1 cm/m2 LVIDs: 2.68 2.0-3.6 cm LVPWd: 0.96 0.7-1.1 cm LA Diam: 4.20 2.7-3.8/3.0-4.0 cm LAIDs Index: 2.22 1.5-2.3 cm/m2 LV Mass: 146.21 67-162/88-224 g LV Mass Index: 77.36 43-95/49-115 g/m2 LVOT Diam: 2.00 3.0+(-)1.3 cm 2D Systolic Function EF 4C: 69.00 >55% EF 2C: 71.60 >55% EF BiP: 70.40 >55% Mitral Valve MV Pk E: 1.12 MV PK A: 1.71 MV Decel Time: 252.00 E/A: 0.70 E'Lateral: 7.94 E'Medial: 7.18 E/E' Med: 15.60 E/E' Lat: 14.10 PHT: 74.00 MVA PHT: 2.97 Decel Comal: 4.46 Aortic Valve AoV Pk Philip: 1.51 AoV Mn Philip: 1.17 AoV VTI: 0.33 AoV Pk Grad: 9.00 Aov Mn Grad: 6.00 MARVEL Cont.VTI: 2.48 LVOT LVOT Pk Philip: 1.17 LVOT Mn Philip: 0.80 LVOT VTI: 0.26 LVOT Pk Grad: 5.00 LVOT Mn Grad: 3.00 LVOT Diam: 2.00 LVOT Area: 3.14 Diastolic Function MV Pk E: 1.12 MV Pk A: 1.71 E/A: 0.70 E'Medial: 7.18 E/E' Med: 15.60 E' Laterial: 7.94 E/E' Lat: 14.10 Right Ventricle TAPSE (mm): 19.00 TVS' Philip: 13.00 Tricuspid Valve RA Press: 8.00 Updated in Other Vendor System with Status of Final Giancarlo Rosales MD electronically signed on 05/04/2025 12:19:16 PM with status of Final
== END ==
LOC: HO.CARD 08:06
PROVIDERS: PCP Internal Medicine; Visit Provider Physician Assistant Medical
DX: R00.2 Palpitations (principal); R60.0 Localized edema
CPT/HCPCS: 93306; Q9957

== ENCOUNTER → 2025-05-04 08:11 | Outpatient (BNV) | payer MEDICARE, SELFPAY | PROVIDERS: PCP Internal Medicine; Visit Provider Internal Medicine Cardiovascular Disease | DX: I34.81 Nonrheumatic mitral (valve) annulus calcification (principal); I35.8 Other nonrheumatic aortic valve disorders | CPT/HCPCS: 93306 ==

== ENCOUNTER 2025-08-30 14:01 | Outpatient (AMB) | payer MEDICARE, SELFPAY ==
[2025-08-30 14:03] VITALS: BP 101/55; PULSE 100; RESP 16; TEMP 36.6; O2SAT 94; BMI 36.4
--- NOTE | 2025-08-30 14:03 | A.OFFPC_ITS ---
Vital Signs 08/30/25 14:03 Height 5 ft 1.02 in Weight 193 lb BMI 36.4 BP 101/55 L Blood Pressure Location Lt brachial Position Sitting Respiration 16 Pulse 100 Pulse Source Pulse Oximeter Temp 97.8 F Temp Source Temporal Artery Scan Pulse Oximetry (%) 94 Oxygen Delivery Method Room Air Intake Visit Reasons: follow up Junction Maker Required: No Accompanied by: Self / Same As Patient Allergies Sulfa (Sulfonamide Antibiotics) (SULFA (SULFONAMIDE ANTIBIOTICS)) Allergy (Intermediate, Verified 08/30/25 14:03) HIVES, severe hives Keflex Allergy (Unknown, Uncoded 08/30/25 14:03) Rash seasonal Allergy (Unknown, Uncoded 08/30/25 14:03) Watery Eye SEASONAL ALLERGIES Allergy (Unknown, Uncoded 08/30/25 14:03) CONGESTION/ASTHMA Sulfa Allergy (Unknown, Uncoded 08/30/25 14:03) Rash Tobacco use date assessed: 03/26/25 Dental Screening Dental Screen Date: 12/11/24 HPI HPI Comments History of Present Illness Details History of Present Illness - The patient is a 70 year old individua l presenting for follow-up and medication management. - Furosemide had been stopped in March, ut the patient independently resumed it due to recurrent foot swelling and reports improvement with its use. - Recently, the patient had blood work s howing an elevated D-dimer, prompting a recommendation for an emergency room visit. - The patient instead went to an ER in [facility], where an echocardiogram was performed and reportedly showed no acute issues. - This was done to evaluate a prior find ing of a stilled heart on a previous echocardiogram at [facility]. - The patient has a follow-up appointmen t with a tentmaker, Dr. Muhammad, in early September for another echocardiogram. - The patient reports taking alprazolam 1 mg twice daily for stress. - The patient has also recently restarte d Ozempic for weight loss. - Other chronic medications include elie elukast, levothyroxine, furosemide twice daily, a statin, and aspirin. Social History - The patient reports having a stressful job and a stressful family, leading to a stressful life. Results - D-dimer: Elevated on recent lab work. - Echocardiogram ([place]): No acute fin dings. - Echocardiogram ([facility], prior): Revea led a stilled heart . [facility] Medical History Left atrial enlargement Mild diastolic dysfunction Colon cancer screening COPD with asthma Peripheral edema Elevated d-dimer Rib contusion Visit for suture removal Encounter for annual wellness exam in Medicare patient Right leg swelling Leg pain Left leg swelling Toenail fungus Lymphedema Chronic venous insufficiency SOB (shortness of breath) Cellulitis of left lower leg Cough Bronchitis Hyperkalemia Encounter for colorectal cancer screening using Cologuard test (~02/2024) Obesity Emphysema lung Breast cancer screening by mammogram (~11/09/24) Acquired hypothyroidism Mild hypercholesterolemia Vitamin D deficiency Depression Anxiety Renal lithiasis Diverticulitis Asthma Breast cancer Surgical History History of colonoscopy (~04/17/13) H/O mastectomy History of bowel resection Family History Sister Breast cancer Maternal Aunt Breast cancer Social History Housing: House Alcohol intake: current Alcohol intake frequency: holidays/special occasions only Patient Tobacco Use Status: Former Tobacco user e-Cigarette/Vaping Use: Never Used Second Hand Smoke Exposure: Yes service: No Current occupational status: employed Cognitive needs: No Hearing needs: No Vision needs: Yes (Reading glasses) Female Reproductive History Menstrual Age of Menarche: 8 Questionnaire PHQ-9 Over the last 2 weeks, how often have you been bothered by any of the following problems? 1. Little interest or pleasure in doing things: not at all 2. Feeling down, depressed, or hopeless: not at all 3. Trouble falling or staying asleep, or sleeping too much: not at all 4. Feeling tired or having little energy: not at all 5. Poor appetite or overeating: not at all 6. Feeling bad about yourself - or that you are a failure or have let yourself or your family down: not at all 7. Trouble concentrating on things, such as reading the newspaper or watching television: not at all 8. Moving or speaking so slowly that other people could have noticed. Or the opposite - being so fidgety or restless that you have been moving around a lot more than usual: not at all 9. Thoughts that you would be better off or of hurting yourself in some way: not at all Total score: 0 Depression Screening Interpretation: Negative Depression Screening Done: Yes 47960 - PHQ-9 Billing: Yes Source: Developed by Drs. Palomo Bishop, Adriana Holman, Kennedy Weston and colleagues, with an educational yady from [email or web address]. Thrive Questionnaire Date Thrive assessed: 03/26/25 I am a: Patient What is your living situation today?: I have a steady place to live Within the past 12 months, did the food you bought not last and you didn't have the money to get more?: Never true Within the past 12 months, did you worry whether your food would run out before you got money to buy more?: Never true Do you have trouble paying for medicines?: No Do you have trouble getting transportation to medical appointments?: No Do you have trouble paying your heating and electricity bill?: No Do you have trouble taking care of your child, family member or friend?: No Do you have trouble with day-to-day activities such as bathing, preparing meals, shopping, managing finances, etc.?: No Are you currently unemployed and looking for a job?: No Are you interested in more education?: No Please select the resources that you would like help with: None THRIVE Score: 0 AUDIT C Alcohol Use Questionnaire (AUDIT-C) 1. How often do you have a drink containing alcohol?: Monthly or less 2. How many drinks containing alcohol do you have on a typical day when you are drinking?: 1 or 2 3. How often do you have six or more drinks on one occasion?: Never Total Score: 1 Score Reviewed/Action Taken: No RONY-7 AMB Questionnaire RONY-7 Date RONY - 7 assessed: 12/11/24 Feeling nervous, anxious, or on edge: 3 = Nearly every day (on medication) Not being able to stop or control worryin = Not at all Worrying too much about different things: 0 = Not at all Trouble relaxin = More than half the days Being so restless that it is hard to sit still: 0 = Not at all Becoming easily annoyed or irritable: 0 = Not at all Feeling afraid as if something awful might happen: 0 = Not at all Total RONY-7 score (0-4 normal; 5-9 mild; 10-14 moderate; 15-21 severe): 5 Source: Developed by Drs. Palomo Bishop, Adriana Holman, Kennedy Weston and colleagues, with an educational yady from agreement[email or web address]. RONY-7 Assessment Billing RONY-7 Assessment Tool: RONY-7 Assessment 47074 Review of Systems Narrative Review of Systems - Cardiovascular: Denies acute issues; a recent echocardiogram was unremarkable. - Extremities: Reports minimal pedal edema with furosemide use. - Psychiatric: Reports significant stress from job and family. Physical exam (Primary Care) Vital Signs: Last Vital Signs Temp 97.8 F 08/30/25 14:03 Pulse 100 08/30/25 14:03 Resp 16 08/30/25 14:03 BP 101/55 L 08/30/25 14:03 Pulse Ox 94 08/30/25 14:03 Oxygen Delivery Method Room Air 08/30/25 14:03 BMI result Body Mass Index 36.4 Tobacco/Smoking Status: Tobacco use Status Tobacco use date assessed 03/26/25 08/30/25 14:04 Patient Tobacco Use Status Former Tobacco user 08/30/25 14:04 e-Cigarette/Vaping Use Never Used 08/30/25 14:04 PHQ-9: PHQ-9 Score PHQ-9: Total score 0 08/30/25 14:04 Depression Screening Interpretation: Negative Thrive Assessment: Date of Thrive Assessment Date Thrive assessed 03/26/25 08/30/25 14:04 Narrative Physical Exam General: Cooperative and healthy appearing Nutritional Appearance: Well nourished Orientation/consciousness: Patient oriented x3 Limitations: No limitations Head: Normal to inspection General: Appearance normal, both eyes and all related structures Neck: Normal visual inspection Chest: Normal palpation of entire chest wall Respiratory: Normal respiratory effort Neurology: Patient oriented x3 Office Procedures Flu Questionnaire Does the patient have a severe egg allergy?: No Does the patient have severe life threatening allergies?: No Does the patient have a fever or illness today?: No Has the patient ever had Guillain-[place] Syndrome?: No Has the patient ever had any past reaction to a flu shot?: No Immunizations Fluarix [id number] (PF) 45 mcg (15 mcg x 3)/0.5 mL IM syringe Performing Provider: Malik Espinal MD [facility] Documented (not given) by: DANICA Eng on 08/30/25 14:16 Reason Not Given: Received Previously Coding Level of Care Code Complex visit Add On G2211 Diagnoses Anxiety F41.9 Additional Codes RONY-7 Assessment Billing - RONY-7 Assessment Tool: RONY-7 Assessment 86204 ([id number]) PHQ-9 - 03459 - PHQ-9 Billing: Yes ([id number]) Assessment & Plan Assessment & Plan (1) Anxiety: Code(s): F41.9 - Anxiety disorder, unspecified Category: Medical Plan Plan - The dose of alprazolam will be decreased to 0.5 mg twice a day, as the current dose of 1 mg twice a day is considered high. - A new prescription for alprazolam 0.5 mg will be filled after September 15, as the patient has enough of the current medication to last until then. - The patient will continue with the cardiology follow-up appointment with Dr. Muhammad in early September. - Continue taking current medications including furosemide, Ozempic, montelukast, levothyroxine, a statin, and aspirin as prescribed. - The patient was advised to call if there are any issues with the reduced alprazolam dosage. Discussion Notes We discussed the patient's current use of alprazolam 1 mg twice daily. I advised that this dose is a little high, and we mutually agreed to reduce it to 0.5 mg twice daily. I instructed the patient to call if any issues arise with this change. We confirmed the patient has enough medication to last until September 15, and a new prescription will be sent at that time. We also acknowledged the patient's upcoming cardiology appointment in early September. Patient Instructions - Take 0.5 mg of alprazolam twice a day instead of 1 mg. - You have enough of your current alprazolam to last until about September 15. - We will send a new prescription for the lower dose after that date. - Please call our office if you have any problems or feel unwell with the lower dose of medication. - Continue taking your other medications as prescribed, including Lasix for foot swelling. - Keep your appointment with the heart doctor, Dr. Muhammad, in early September. Orders: Orders Influenza [id number] Immunization Today Z23 - Encounter for immunization Medications: Changed From alprazolam 1 mg PO BID 15 days PRN 30 tabs 0RF anxiety To alprazolam 0.5 mg PO BID PRN 60 tabs 0RF anxiety 30 days Refilled albuterol sulfate 90 mcg/actuation 2 puffs inhalation Q6H PRN 8.5 grams 1RF shortness of breath or wheezing
--- OUTSIDE RECORDS SUMMARY | 2025-08-30 18:57 | XMS_ITS | Clinical Summary ---
Author Organization [facility] [place] [address] Care Team Providers Care Haulage Engine Operator Name Role Phone Unknown Primary Care Provider Unavailabl e Social History Tobacco Use Types Packs/Day Years [...] Density Scan 2020 Covid-19 Vaccine (1 - 2024- season) 2025 Influenza (Flu) vaccine (1 o f 1 - Influenza standard series) 06/07/2025 Insurance [facility] Care Teams Haulage Engine Operator Relationship Specialty Start Date End Date Unknown None PCP - General 04/26/25
== END 2025-08-30 14:38 | disposition home or self-care (01) ==
LOC: HO.HMCSH 14:01
PROVIDERS: PCP Internal Medicine; Visit Provider Internal Medicine
DX: Z23 Encounter for immunization (principal); F41.9 Anxiety disorder, unspecified

== ENCOUNTER → 2025-08-30 14:01 | Outpatient (BNVA) | payer MEDICARE, SELFPAY | PROVIDERS: PCP Internal Medicine; Visit Provider Internal Medicine | DX: F41.9 Anxiety disorder, unspecified (principal); Z56.6 Other physical and mental strain related to work; Z28.89 Immunization not carried out for other reason | CPT/HCPCS: 90471; 96127; 99212 ==